=== PATIENT | male | born 1955 ===

== ENCOUNTER → 2020-03-30 14:28 | Outpatient (BNVA) | payer OTHER, SELFPAY | PROVIDERS: Visit Provider Urology | DX: N52.9 Male erectile dysfunction, unspecified (principal) | CPT/HCPCS: 99213 ==

== ENCOUNTER → 2020-07-06 10:07 | Outpatient (BNVA) | payer OTHER, SELFPAY | PROVIDERS: Visit Provider Urology | DX: Z13.89 Encounter for screening for other disorder (principal) ==

== ENCOUNTER 2020-07-12 09:22 | Emergency (ER) | payer MEDICARE, SELFPAY ==
--- NOTE | 2020-07-12 09:39 | ED_ITS ---
HPI - General Adult General Chief complaint: Upper Respiratory Symptoms Stated complaint: multiple complaints Time Seen by Provider: 07/12/20 09:32 Source: patient Mode of arrival: ambulatory Limitations: no limitations History of Present Illness HPI narrative: 65 y/o male with history of COPD, erectile dysfunction, hx colon cancer 30+ years ago, prior hx heroin abuse who presents with SOB and feeling unwell after he received the 2nd dose of the COVID-19 vaccine yesterday. He states at 9pm last night he got chills, SOB, body aches, and headache. He barely slept last night. He denies chest pain, fevers, abdominal pain, N/V/D, no cough. He has been tested several times for COVID-19 and has always been negative. He lives in the assisted living area of the [facility]. MD complaint: SOB Onset (ago): hour(s) (12) Location: head and chest Radiation: non-radiation Severity: moderate Quality: aching Pain Consistency: constant Relieving factors: rest Exacerbating factors: movement Associated symptoms: fever/chills, headaches, loss of appetite, malaise, sh ortness of breath and weakness Treatments prior to arrival: none Related Data Previous Rx's Medication Instructions Recorded tadalafil 20 mg tablet 20 mg PO DAILY PRN 30 Days #15 tab 06/02/20 alprostadil 20 mcg intracavernosal 1.25 mcg INTRA-CAVERNOSAL 3XW PRN 07/06/20 kit #1 ea azithromycin [Zithromax Z-Jose F] See Rx Instructions .ROUTE 07/12/20 .COMPLEX #6 tab prednisone 40 mg PO DAILY #10 tab 07/12/20 Allergies Allergy/AdvReac Type Severity Reaction Status Date / Time haloperidol [Haldol] Allergy Unknown Verified 11/12/18 00:00 No Known Allergies Allergy Unverified 03/09/20 19:31 [No Known Allergies*] Wellbutrin Allergy Unknown Uncoded 11/12/18 00:00 Review of Systems Review of Systems: Constitutional: No Fever, + Chills ENT/Mouth: + sore throat (x1 month), No Rhinorrhea, No Swallowing Difficulty Eyes: No Eye Pain, No Swelling, No Redness Cardiovascular: No Chest Pain, + SOB, + Orthopnea, No Edema Respiratory: No Cough, No Sputum, + Wheezing, + dyspnea Gastrointestinal: No Nausea, No Vomiting, No Diarrhea, No abdominal Pain Genitourinary: No Dysuria, No Urinary Frequency, No Hematuria Musculoskeletal: No joint pain, + Myalgias Skin: No Skin Lesions, No rash Neuro: N+ Weakness, No Numbness, No Dizziness, + Headache Psych: + Anxiety/Panic, No Depression Heme/Lymph: No Bruising, No Lymphadenopathy Endocrine: No Polyuria, No Polydipsia [facility] Past Medical History Attestation statement: The following information was validated with the patient. Medical History BPH (benign prostatic hyperplasia) Colon cancer COPD (chronic obstructive pulmonary disease) Social History Social History Alcohol intake: never Smoking Status: Former smoker Use of substances other than those prescribed or required for medical reasons: No Advance Directives: No Advance Directives Information Provided: No Physical Exam Vital Signs: Vital Signs: Last Vital Signs Temp 98.5 F 07/12/20 12:34 Pulse 115 H 07/12/20 12:34 Resp 26 H 07/12/20 12:34 BP 131/73 07/12/20 12:34 Pulse Ox 95 07/12/20 12:34 Body Mass Index 26.6 Appearance: Alert. Oriented X3. No acute distress. Eyes: Pupils equal, round and reactive to light. ENT: Pharynx with mild generalized erythema. Neck: Normal inspection. Neck supple. CVS: rapid rate, regular rhythm. Pulses normal. Respiratory: Mild respiratory distress with RR mid 20's. Expiratory wheezes th roughout right lung. Left lung sounds are normal Abdomen: Softly distended and nontender. +BS x4 Skin: Skin warm and dry. Normal skin color. Normal skin turgor. No rashes. Extremities: No lower extremity edema. Negative Kaitlyn's sign. Neuro: Oriented X 3. No motor deficit. No sensory deficit. Course Course Course Narrative: 65 y/o male with history of COPD, remote hx colon cancer, ED, prior drug use who presents with flu-like symptoms as well as SOB after receving the COVID vaccine yesterday. He is tachycardic and tachypneic on arrival with SpO2 97%. Symptoms likely related to vaccination however given his respiratory status will get CXR, labs including DDIMER. EKG ordered. Will give IV steroids and nebulizer treatment once COVID is negative. He has right sided wheeze and hx COPD. Dispo pending results and improvement. Reevaluation(s) Reevaluation #1: Aeration improved after nebulizer treatment. HR 120-130 after neb. Patient is asymptomatic. Low grade fever persists after Tylenol. Dose of IV toradol ordered. DDIMER <200. Doubt PE. Procalcitonin low and CXR showing only mild pulmonary vascular congestion, no infiltrate. BNP is 11. Will re-evaluate Reevaluation #2: HR improved to 102. RR 20. He feels much better. He is stable for discharge with treatment for COPD exacerbation with prednisone and Z-jose f. Counseled on vaccine reactions and management. Medical Decision Making Lab Data Result diagrams: 07/12/20 10:37 07/12/20 10:37 Labs: Lab Results 07/12/20 07/12/20 07/12/20 Range/Units 09:46 10:37 10:37 WBC 8.6 (4.8-10.8) X10*3/uL RBC 4.74 (4.60-5.80) X10*6/uL Hgb 14.3 (14.0-18.0) g/dl Hct 43.1 (42-52) % MCV 90.9 (80-98) fL MCH 30.2 (27.0-33.0) pg MCHC 33.2 (31.0-36.0) g/dl RDW 11.8 (11.0-16.0) % Plt Count 184 (160-400) X10*3/uL MPV 9.4 (9.4-12.4) fL Immature Gran % (Auto) 0.4 (0.0-0.4) % Neut % (Auto) 78.5 H (45-73) % Lymph % (Auto) 13.4 L (20-40) % Cloud % (Auto) 7.0 (2-11) % Eos % (Auto) 0.2 (0-4) % Baso % (Auto) 0.5 (0-2) % Lymph # (Auto) 1.2 (1.2-4.9) X10*3/uL Cloud # (Auto) 0.6 (0.1-1.2) X10*3/uL Eos # (Auto) 0.0 (0.0-0.4) X10*3/uL Baso # (Auto) 0.0 (0.0-0.2) X10*3/uL Abs Immat Gran (auto) 0.03 (0.00-0.03) X10*3/uL Absolute Neuts (auto) 6.7 (2.0-8.3) X10*3/uL Absolute Nucleated RBC 0.000 (0.0-0.012) X10*3/uL Nucleated RBC % (auto) 0.0 (0.0-0.2) /100WBC D-Dimer < 200 NG/ML Sodium (135-145) mmol/L Potassium (3.3-5.1) mmol/l Chloride (96-108) mmol/L Carbon Dioxide (22-29) mmol/L Anion Gap (12-20) BUN (9-16) mg/dL Creatinine (0.5-1.4) mg/dL Estim Creat Clear Calc Estimated GFR Random Glucose (60-115) mg/dL Lactic Acid (0.5-2.0) mmol/L Calcium (8.4-10.2) mg/dL Magnesium (1.6-2.6) mg/dL Total Bilirubin (0.0-1.0) mg/dL Direct Bilirubin (0.0-0.5) mg/dL AST (5-37) U/L ALT (0-40) U/L Alkaline Phosphatase (39-117) U/L C-Reactive Protein (< or = 0.50) mg/dL B-Natriuretic Peptide (<100) pg/mL Total Protein (6.5-8.0) g/dL Albumin (3.5-5.0) g/dL Procalcitonin ng/mL Coronavirus (PCR) NEGATIVE (Negative) Influenza Type A (PCR) NEGATIVE (Negative) Influenza Type B (PCR) NEGATIVE (Negative) RSV RNA Qual (PCR) NEGATIVE (Negative) 07/12/20 07/12/20 07/12/20 Range/Units 10:37 10:37 10:37 WBC (4.8-10.8) X10*3/uL RBC (4.60-5.80) X10*6/uL Hgb (14.0-18.0) g/dl Hct (42-52) % MCV (80-98) fL MCH (27.0-33.0) pg MCHC (31.0-36.0) g/dl RDW (11.0-16.0) % Plt Count (160-400) X10*3/uL MPV (9.4-12.4) fL Immature Gran % (Auto) (0.0-0.4) % Neut % (Auto) (45-73) % Lymph % (Auto) (20-40) % Cloud % (Auto) (2-11) % Eos % (Auto) (0-4) % Baso % (Auto) (0-2) % Lymph # (Auto) (1.2-4.9) X10*3/uL Cloud # (Auto) (0.1-1.2) X10*3/uL Eos # (Auto) (0.0-0.4) X10*3/uL Baso # (Auto) (0.0-0.2) X10*3/uL Abs Immat Gran (auto) (0.00-0.03) X10*3/uL Absolute Neuts (auto) (2.0-8.3) X10*3/uL Absolute Nucleated RBC (0.0-0.012) X10*3/uL Nucleated RBC % (auto) (0.0-0.2) /100WBC D-Dimer NG/ML Sodium 139 (135-145) mmol/L Potassium 4.4 (3.3-5.1) mmol/l Chloride 104 (96-108) mmol/L Carbon Dioxide 24 (22-29) mmol/L Anion Gap 15 (12-20) BUN 12 (9-16) mg/dL Creatinine 1.02 (0.5-1.4) mg/dL Estim Creat Clear Calc 61.9 Estimated GFR > 60 Random Glucose 132 H (60-115) mg/dL Lactic Acid 1.3 (0.5-2.0) mmol/L Calcium 9.4 (8.4-10.2) mg/dL Magnesium 2.0 (1.6-2.6) mg/dL Total Bilirubin 1.2 H (0.0-1.0) mg/dL Direct Bilirubin 0.4 (0.0-0.5) mg/dL AST 16 (5-37) U/L ALT 11 (0-40) U/L Alkaline Phosphatase 76 (39-117) U/L C-Reactive Protein 1.01 H (< or = 0.50) mg/dL B-Natriuretic Peptide 11 (<100) pg/mL Total Protein 7.8 (6.5-8.0) g/dL Albumin 5.0 (3.5-5.0) g/dL Procalcitonin ng/mL Coronavirus (PCR) (Negative) Influenza Type A (PCR) (Negative) Influenza Type B (PCR) (Negative) RSV RNA Qual (PCR) (Negative) 07/12/20 Range/Units 10:37 WBC (4.8-10.8) X10*3/uL RBC (4.60-5.80) X10*6/uL Hgb (14.0-18.0) g/dl Hct (42-52) % MCV (80-98) fL MCH (27.0-33.0) pg MCHC (31.0-36.0) g/dl RDW (11.0-16.0) % Plt Count (160-400) X10*3/uL MPV (9.4-12.4) fL Immature Gran % (Auto) (0.0-0.4) % Neut % (Auto) (45-73) % Lymph % (Auto) (20-40) % Cloud % (Auto) (2-11) % Eos % (Auto) (0-4) % Baso % (Auto) (0-2) % Lymph # (Auto) (1.2-4.9) X10*3/uL Cloud # (Auto) (0.1-1.2) X10*3/uL Eos # (Auto) (0.0-0.4) X10*3/uL Baso # (Auto) (0.0-0.2) X10*3/uL Abs Immat Gran (auto) (0.00-0.03) X10*3/uL Absolute Neuts (auto) (2.0-8.3) X10*3/uL Absolute Nucleated RBC (0.0-0.012) X10*3/uL Nucleated RBC % (auto) (0.0-0.2) /100WBC D-Dimer NG/ML Sodium (135-145) mmol/L Potassium (3.3-5.1) mmol/l Chloride (96-108) mmol/L Carbon Dioxide (22-29) mmol/L Anion Gap (12-20) BUN (9-16) mg/dL Creatinine (0.5-1.4) mg/dL Estim Creat Clear Calc Estimated GFR Random Glucose (60-115) mg/dL Lactic Acid (0.5-2.0) mmol/L Calcium (8.4-10.2) mg/dL Magnesium (1.6-2.6) mg/dL Total Bilirubin (0.0-1.0) mg/dL Direct Bilirubin (0.0-0.5) mg/dL AST (5-37) U/L ALT (0-40) U/L Alkaline Phosphatase (39-117) U/L C-Reactive Protein (< or = 0.50) mg/dL B-Natriuretic Peptide (<100) pg/mL Total Protein (6.5-8.0) g/dL Albumin (3.5-5.0) g/dL Procalcitonin 0.03 ng/mL Coronavirus (PCR) (Negative) Influenza Type A (PCR) (Negative) Influenza Type B (PCR) (Negative) RSV RNA Qual (PCR) (Negative) ECG Data Attestation: I personally reviewed and interpreted this ECG as follows: Interpretation: sinus tachycardia, HR 114 BPM, left anterior fasciuclar block, normal [place] interval, Critical Care Time Critical Care Time Critical Care Time: No Discharge Plan Discharge Clinical Impression: COPD (chronic obstructive pulmonary disease) Qualifiers: COPD type: chronic bronchitis Chronic bronchitis type: unspecified Qualified Code(s): J42 - Unspecified chronic bronchitis Patient Disposition: Home, Self-Care Instructions: COPD (Chronic Obstructive Pulmonary Disease) (ED) Additional Instructions: Your lab workup today was unremarkable. You are being treated for COPD exacerbation with steroids and an antibiotic. Your chills, headache and body aches are due to the COVID vaccine - this is normal. Take Tylenol for your symptoms. Follow up with your doctor this week. Come back to the ER if your shortness of breath worsens or if you develop d ifficulty breathing. Prescriptions: New azithromycin [Zithromax Z-Jose F] 250 mg tablet See Rx Instructions .ROUTE .COMPLEX Qty: 6 RF: 0 prednisone 20 mg tablet 40 mg PO DAILY Qty: 10 RF: 0 No Action tadalafil [Cialis] 20 mg tablet 20 mg PO DAILY PRN (Reason: sexual activity) 30 Days Qty: 15 RF: 3 Edex 20 mcg kit 1.25 mcg intra-cavernosal 3XW PRN (Reason: erectile dysfunction) Qty: 1 RF: 6
--- NOTE | 2020-07-12 09:43 | XR_ITS ---
EXAMINATION: XR CHEST CLINICAL INFORMATION: SOB. COMPARISON: Chest 12/30/2017 TECHNIQUE: Frontal view of the chest was obtained. FINDINGS: The lungs are well-expanded and clear of acute pneumonic process. Heart size is normal. Small Andrew B lines are seen along right CP angle suspicious for mild congestion. No gross bony abnormality seen. XR/XR chest 1V IMPRESSION: Suspect mild pulmonary vascular congestion. No acute pneumonic process seen.
[2020-07-12 09:53] VITALS: BP 145/98; PULSE 116; RESP 24; TEMP 37.6; O2SAT 96; BMI 26.6
--- NOTE | 2020-07-12 09:59 | ECG_ITS ---
Test Reason : SOB Blood Pressure : / mmHG Vent. Rate : 114 BPM Atrial Rate : 114 BPM P-R Int : 142 ms QRS Dur : 074 ms QT Int : 326 ms P-R-T Axes : 073 -45 065 degrees QTc Int : 449 ms Sinus tachycardia Left anterior fascicular block Abnormal ECG When compared with ECG of 30-DEC-2017 12:58, Left anterior fascicular block is now Present Referred By: Shannan Schuster Electronically Signed By:AUSTIN WILLIS
[2020-07-12] MEDS: Albuterol Sulfate (0.083%) 2.5 MG/3 ML VIAL.NEB 5 MG INHALE (10:18)
[2020-07-12 10:23] VITALS: PULSE 105; O2SAT 96
[2020-07-12 10:39] LABS: Influenza A PCR NEGATIVE (Negative); Influenza B PCR NEGATIVE (Negative); Resp Syncy Virus RNA Qual PCR NEGATIVE (Negative); SARS COV2 PCR INHOUSE NEGATIVE (Negative)
[2020-07-12] MEDS: Acetaminophen 325 MG TABLET 975 MG PO (10:40)
[2020-07-12] MEDS: 0.9 % Sodium Chloride 1,000 ML 999 ML IVCONT (10:41)
[2020-07-12] MEDS: methylPREDNISolone Sod Succ/PF 125 MG/2 ML VIAL 80 MG IVPUSH (10:41)
[2020-07-12 10:44] LABS: MANUAL DIFF FLAG NO
[2020-07-12 10:56] LABS: Basophils Percent Auto 0.5 % (0-2); Eosinophils Percent Auto 0.2 % (0-4); Hematocrit 43.1 % (42-52); Hemoglobin 14.3 g/dl (14.0-18.0); Imm Gran Abs Auto 0.03 X10*3/uL (0.00-0.03); Imm Gran Pct Auto 0.4 % (0.0-0.4); Lymphocytes Absolute Auto 1.2 X10*3/uL (1.2-4.9); Lymphocytes Percent Auto 13.4 % (20-40); Mean Corpuscular HGB Conc 33.2 g/dl (31.0-36.0); Mean Corpuscular Hemoglobin 30.2 pg (27.0-33.0); Mean Corpuscular Volume 90.9 fL (80-98); Mean Platelet Volume 9.4 fL (9.4-12.4); Monocytes Absolute Auto 0.6 X10*3/uL (0.1-1.2); Neutrophils Absolute Auto 6.7 X10*3/uL (2.0-8.3); Neutrophils Percent Auto 78.5 % (45-73); Platelet Count 184 X10*3/uL (160-400); Red Blood Count 4.74 X10*6/uL (4.60-5.80); Red Cell Distribution Width 11.8 % (11.0-16.0); White Blood Count 8.6 X10*3/uL (4.8-10.8)
[2020-07-12 10:58] LABS: D Dimer < 200 NG/ML
[2020-07-12 11:05] VITALS: BP 144/94; PULSE 129; PULSE 130; RESP 25; TEMP 37.7; O2SAT 96; O2SAT 97
[2020-07-12 11:10] LABS: Lactic Acid 1.3 mmol/L (0.5-2.0)
[2020-07-12 11:17] LABS: Alanine Aminotransferase 11 U/L (0-40); Alkaline Phosphatase 76 U/L (39-117); Anion Gap 15 (12-20); Aspartate Amino Transferase 16 U/L (5-37); Bilirubin Direct 0.4 mg/dL (0.0-0.5); Bilirubin Total 1.2 mg/dL (0.0-1.0); Blood Urea Nitrogen 12 mg/dL (9-16); C Reactive Protein 1.01 mg/dL (< or = 0.50); Calcium 9.4 mg/dL (8.4-10.2); Carbon Dioxide 24 mmol/L (22-29); Chloride 104 mmol/L (96-108); Creatinine Clr Calc Pharmacy 61.9; Estimated Glomerular Filt Rate > 60; Glucose Random 132 mg/dL (60-115); Potassium 4.4 mmol/l (3.3-5.1); Sodium 139 mmol/L (135-145); Total Protein 7.8 g/dL (6.5-8.0)
[2020-07-12 11:22] LABS: B Type Natriuretic Peptide 11 pg/mL (<100)
[2020-07-12 11:39] LABS: Procalcitonin 0.03 ng/mL
[2020-07-12 12:34] VITALS: BP 131/73; PULSE 115; RESP 26; TEMP 36.9; O2SAT 95
[2020-07-12] MEDS: Ketorolac Tromethamine 30 MG/ML VIAL IVPUSH (12:57)
== END 2020-07-12 14:24 | disposition home or self-care (01) ==
PROVIDERS: Physician Assistant; Emergency Provider Emergency Medicine
DX: J42 Unspecified chronic bronchitis (principal); R06.02 Shortness of breath; Z79.899 Other long term (current) drug therapy; Z87.891 Personal history of nicotine dependence; Z20.822 Contact with and (suspected) exposure to COVID-19
CPT/HCPCS: 0241U; 36415; 71045; 80048; 80076; 83605; 83735; 83880; 84145; 85025; 85379; 86140; 87040; 93005; 94640; 96374; 96375; 99284; 99285; J1885; J2930

== ENCOUNTER 2023-08-10 07:33 | Inpatient (IN) | payer MEDICARE, SELFPAY ==
[2023-08-10] VITALS (8 sets, daily range): BP systolic 104–137; BP diastolic 53–88; PULSE 67–95; RESP 13–25; TEMP 36.4–36.9; O2SAT 89–98; BMI 23.1
--- NOTE | 2023-08-10 | ECG_ITS ---
Test Reason : OD/BASELINE Blood Pressure : / mmHG Vent. Rate : 081 BPM Atrial Rate : 081 BPM P-R Int : 134 ms QRS Dur : 074 ms QT Int : 390 ms P-R-T Axes : 052 -20 053 degrees QTc Int : 453 ms Normal sinus rhythm Normal ECG When compared with ECG of 12-JUL-2020 10:22, No significant change was found Referred By: Bev Xiao Electronically Signed By:KALPESH CANO MD
--- NOTE | ~2023-08-10 | XR_ITS ---
EXAMINATION: XR CHEST CLINICAL INFORMATION: Shortness of breath COMPARISON: X-ray 07/12/2020 TECHNIQUE: 3 views of the chest were obtained. FINDINGS: Stable cardiac and mediastinal silhouette. Hazy patchy opacities in the right lung base. Stable mild central vascular prominence. No overt pulmonary edema. No effusion or pneumothorax. Thoracic spine degeneration. XR/XR chest 2V IMPRESSION: Right basilar hazy opacities could reflect infectious/inflammatory process.
--- NOTE | 2023-08-10 07:42 | ED.OVERDOSE ---
HPI - Overdose General Chief Complaint: Overdose Stated Complaint: OVERDOSE 4MG OF NARCAN Source: EMS Mode of arrival: EMS History of Present Illness HPI Narrative: This is a 68 years old male with history of opioid abuse presented to the emergency room by ambulance after overdose of opioids. Per EMS he was unresponsive requiring BVM ventilation, received 4 mg of Narcan in the field he arrives now awake alert actively vomiting. He has history of COPD and history of substance abuse MD complaint: accidental overdose Onset (ago): hour(s) (1) How Overdose Was Discovered: called family/friend Context: Accidental Overdose: wanted to get high Associated symptoms: lethargy Treatments Prior to Arrival: narcan Related Data Home Medications Medication Instructions Recorded Confirmed docusate sodium 100 mg capsule 100 mg PO BID PRN Constipation 08/10/23 08/10/23 ferrous gluconate 324 mg (38 mg 324 mg PO DAILY 08/10/23 08/10/23 iron) tablet fluticasone fur. 200 mcg-umeclid 1 inh inhalation DAILY 08/10/23 08/10/23 62.5 mcg-vilant 25 mcg inhalat.powder (Trelegy Ellipta) levalbuterol tartrate 45 2 inh inhalation QID PRN Shortness 08/10/23 08/10/23 mcg/actuation aerosol inhaler Of Breath Or Wheezing prazosin 2 mg capsule 2 mg PO BEDTIME 08/10/23 08/10/23 quetiapine 100 mg tablet 100 mg PO BEDTIME 08/10/23 08/10/23 Previous Rx's Medication Instructions Recorded amoxicillin 875 mg-potassium 1 tab PO BID #10 tabs 08/11/23 clavulanate 125 mg tablet prednisone 20 mg tablet 40 mg (2 x 20 mg) PO DAILY #10 tabs 08/11/23 Allergies Allergy/AdvReac Type Severity Reaction Status Date / Time haloperidol [Haldol] Allergy Unknown Anaphylaxis Verified 08/10/23 20:08 Wellbutrin Allergy Unknown Hives Uncoded 08/10/23 20:08 Review of Systems Constitutional: Constitutional: Reports no additional constitutional complaints ENT: Reports system reviewed and no additional complaints, except as documented Respiratory: Respiratory: Reports no additional respiratory complaints [facility] Past Medical History [facility] Narrative: Opioid abuse/COPD/colon cancer Medical History Colon cancer COPD (chronic obstructive pulmonary disease) BPH (benign prostatic hyperplasia) Social History Social History Household Members: None Housing: Other Housing Other:: Renting a room Do you presently have visiting nurse or other home services: No Alcohol intake: never Patient Tobacco Use Status: Former Tobacco user Use of substances other than those prescribed or required for medical reasons: Yes Substance Use Type: Crack/Cocaine Substance Use Frequency: Socially Last Used Substance: Hours (ago) Currently Displaying Signs/Symptoms of Drug Intoxication Withdrawal: No Any prior treatment program specific to substance use: No Have you been hit, kicked, punched, or otherwise hurt by someone within the past year? If so, by whom?: No Do you feel safe in your current relationship?: No Current Relationship Is there a partner from a previous relationship who is making you feel unsafe now?: No Are you made to feel afraid or neglected: No Advance Directives: No Advance Directives Information Provided: No Do you have thoughts of harming others: None Do you have a plan to hurt others: No Plan Nutrition Risks: No Nutritional Risk Poor oral hygiene: No Physical Exam Vital Signs: Vital Signs: Last Vital Signs Temp 97.7 F 08/11/23 08:00 Pulse 83 08/11/23 08:00 Resp 18 08/11/23 08:00 BP 129/68 08/11/23 08:00 Pulse Ox 92 08/11/23 08:00 O2 Del Method Room Air 08/11/23 08:00 O2 Flow Rate 1 08/10/23 23:20 BMI result Body Mass Index 23.1 Const: General: cooperative Nutritional Appearance: well nourished Orientation/consciousness: oriented to person HEENT: Head: Yes normal to inspection Ears: external ears normal General nose exam: Normal external nose present Face and sinus: Yes normal facial exam Mouth: Normal oral and palatal mucosa present Throat: Yes posterior oropharynx normal Neck: Neck: Yes normal visual inspection Lymphatic: no lymphadenopathy noted Chest: Chest palpation & inspection: normal inspection of the chest Resp: Effort & Inspection: normal respiratory effort Auscultation: clear to auscultation bilaterally Cardio: Jugular venous distension: no JVD Rate: regular rate Rhythm: regular rhythm GI: Inspection: Yes normal to inspection Palpation (GI): Soft to palpation Percussion: Yes normal to percussion Skin: General skin exam: no rashes or lesions noted Lesions: no lesions Rashes: no rashes Trauma: no lacerations or abrasions Wounds: no wounds Neuro: General: oriented to person Cranial nerves: Yes CN's II-XII intact bilaterally Medications Administered Generic Name Dose Route Start Last Admin Trade Name Freq PRN Reason Stop Dose Admin Albuterol/Ipratropium 3 ml 08/10/23 16:00 08/11/23 07:51 Albuterol/Iprat 2.5/0.5mg 3 Ml Ampul.Neb INHALE 3 ml RQ4H WHILE AWAKE UNIQUE Administration Enoxaparin Sodium 40 mg 08/10/23 13:30 08/10/23 13:50 Enoxaparin Sodium 40 Mg/0.4 Ml Syringe SUBCUT 40 mg Q24H UNIQUE Administration Fluticasone/Umeclidinium/Vilanterol 1 puff 08/11/23 09:00 08/11/23 07:53 Fluticasone/Umeclidinium/Vilanterol 200/62.5/25 Blst.W.Dev INHALE Not Given DAILY UNIQUE Piperacillin Sod/Tazobactam 50 mls @ 100 mls/hr 08/10/23 17:45 08/11/23 06:28 Sod 3.375 gm/ Sodium Chloride IV Infused Q6H UNIQUE Infusion Methylprednisolone Sodium Succinate 40 mg 08/10/23 15:45 08/11/23 04:04 Methylprednisolone Sod Succ 40 Mg/Ml Vial IVPUSH 40 mg Q12H UNIQUE Administration Prazosin HCl 2 mg 08/10/23 21:00 08/10/23 20:18 Prazosin Hcl 1 Mg Capsule PO 2 mg BEDTIME UNIQUE Administration Protocol Quetiapine Fumarate 100 mg 08/10/23 21:00 08/10/23 20:18 Quetiapine Fumarate 100 Mg Tablet PO 100 mg BEDTIME UNIQUE Administration Sodium Chloride 3 ml 08/10/23 16:00 08/11/23 09:20 0.9 % Sodium Chloride Flush 3 Ml Syringe IVFLUSH Not Given QSHIFT UNIQUE Discontinued Medications Generic Name Dose Route Start Last Admin Trade Name Freq PRN Reason Stop Dose Admin Sodium Chloride 1,000 mls @ 999 mls/hr 08/10/23 07:45 08/10/23 09:42 Ns IVCONT 08/10/23 08:45 Infused .Q1H1M UNIQUE Infusion Piperacillin Sod/Tazobactam 100 mls @ 200 mls/hr 08/10/23 11:31 08/10/23 12:55 Sod 4.5 gm/ Sodium Chloride IV 08/10/23 12:00 Infused ONCE ONE Infusion Sodium Chloride 1,000 mls @ 999 mls/hr 08/10/23 13:15 08/10/23 14:58 Ns IVCONT 08/10/23 14:15 Infused .Q1H1M UNIQUE Infusion Ondansetron HCl 4 mg 08/10/23 07:41 08/10/23 08:30 Ondansetron Hcl 4 Mg/2 Ml Vial IVPUSH 08/10/23 07:42 4 mg ONCE ONE Administration Medical Decision Making Medical Decision Making [facility] Narrative: Patient presented with opioid overdose will check labs administer fluid IV antiemetic and reassessed Differential Diagnosis Differential Diagnoses: The differential diagnosis associated with the presentation includes Overdose of opioids/overdose of benzodiazepine alcohol intoxication Admission/Observation Consideration of admission/observation: Escalation of care including admission/observation considered Consult Healthcare Provider Management of the patient was discussed with: Hospitalist Lab Data [facility] Lab Attestation statement: I reviewed the patient's lab results. 08/11/23 04:58 08/11/23 04:58 Labs: Lab Results 08/10/23 08/10/23 Range/Units 08:11 12:05 WBC 11.8 H (4.8-10.8) X10*3/uL RBC 4.43 L (4.60-5.80) X10*6/uL Hgb 13.5 L (14.0-18.0) g/dl Hct 40.2 L (42.0-52.0) % MCV 90.7 (80.0-98.0) fL MCH 30.5 (27.0-33.0) pg MCHC 33.6 (31.0-36.0) g/dl RDW 12.6 (11.0-16.0) % Plt Count 198 (160-400) X10*3/uL MPV 9.4 (9.4-12.4) fL Immature Gran % (Auto) 2.0 H (0.0-0.4) % Neut % (Auto) 81.8 H (45-73) % Lymph % (Auto) 10.6 L (20-40) % [place] % (Auto) 5.1 (2-11) % Eos % (Auto) 0.2 (0-4) % Baso % (Auto) 0.3 (0-2) % Lymph # (Auto) 1.3 (1.2-4.9) X10*3/uL [place] # (Auto) 0.6 (0.1-1.2) X10*3/uL Eos # (Auto) 0.0 (0.0-0.4) X10*3/uL Baso # (Auto) 0.0 (0.0-0.2) X10*3/uL Abs Immat Gran (auto) 0.24 H (0.00-0.03) X10*3/uL Absolute Neuts (auto) 9.7 H (2.0-8.3) x10*3/uL Absolute Nucleated RBC 0.000 (0.0-0.012) X10*3/uL Nucleated RBC % (auto) 0.0 (0.0-0.2) /100WBC Sodium 139 (135-145) mmol/L Potassium 3.9 (3.3-5.1) mmol/L Chloride 105 (96-108) mmol/L Carbon Dioxide 23 (22-29) mmol/L Anion Gap 15 (12-20) BUN 14 (9-16) mg/dL Creatinine 1.09 (0.5-1.4) mg/dL Estim Creat Clear Calc 66.0 Estimated GFR > 60 Random Glucose 260 H (60-115) mg/dL Calcium 8.9 (8.4-10.2) mg/dL Total Bilirubin 0.9 (0.0-1.0) mg/dL AST 71 H (5-37) U/L ALT 28 (0-40) U/L Alkaline Phosphatase 81 (39-117) U/L Troponin I High Sens 9.0 (<3.5-35.0) ng/L Total Protein 7.5 (6.5-8.0) g/dL Albumin 4.6 (3.5-5.0) g/dL Influenza Type A (PCR) NEGATIVE (Negative) Influenza Type B (PCR) NEGATIVE (Negative) RSV RNA Qual (PCR) NEGATIVE (Negative) SARS-CoV-2 RNA (RT-PCR) NEGATIVE (Negative) Independent Interpretation I performed an independent interpretation of an: Plain X-Ray Radiology Impression Discussion of test interpretation with radiology: I have reviewed the radiologist's reading. Radiologist Impression: TECHNIQUE: 3 views of the chest were obtained. FINDINGS: Stable cardiac and mediastinal silhouette. Hazy patchy opacities in the right lung base. Stable mild central vascular prominence. No overt pulmonary edema. No effusion or pneumothorax. Thoracic spine degeneration. XR/XR chest 2V IMPRESSION: Right basilar hazy opacities could reflect infectious/inflammatory process. External Record Review External record reviewed: Inpatient record Discharge Plan Discharge Clinical Impression: Opioid overdose, Aspiration pneumonia Patient Disposition: Admitted As Inpatient Interventions: Admission Worksheet (ED) Last Done: 08/10/23 18:06 Discharge Date/Time: 08/10/23 19:53
[2023-08-10 08:14] LABS: MANUAL DIFF FLAG NO
[2023-08-10 08:17] LABS: Basophils Percent Auto 0.3 % (0-2); Eosinophils Percent Auto 0.2 % (0-4); Hematocrit 40.2 % (42.0-52.0); Hemoglobin 13.5 g/dl (14.0-18.0); Imm Gran Abs Auto 0.24 X10*3/uL (0.00-0.03); Lymphocytes Absolute Auto 1.3 X10*3/uL (1.2-4.9); Lymphocytes Percent Auto 10.6 % (20-40); Mean Corpuscular HGB Conc 33.6 g/dl (31.0-36.0); Mean Corpuscular Hemoglobin 30.5 pg (27.0-33.0); Mean Corpuscular Volume 90.7 fL (80.0-98.0); Mean Platelet Volume 9.4 fL (9.4-12.4); Monocytes Absolute Auto 0.6 X10*3/uL (0.1-1.2); Monocytes Percent Auto 5.1 % (2-11); Neutrophils Absolute Auto 9.7 x10*3/uL (2.0-8.3); Neutrophils Percent Auto 81.8 % (45-73); Platelet Count 198 X10*3/uL (160-400); Red Blood Count 4.43 X10*6/uL (4.60-5.80); Red Cell Distribution Width 12.6 % (11.0-16.0); White Blood Count 11.8 X10*3/uL (4.8-10.8)
[2023-08-10] MEDS: ondansetron HCL 4 MG/2 ML VIAL IVPUSH (08:30)
[2023-08-10] MEDS: 0.9 % Sodium Chloride 1,000 ML 999 ML IVCONT ×2 (08:30→13:48)
--- NOTE | 2023-08-10 08:40 | PC.NURSE ---
pt comes in by ambulance for overdose that appears accidental. pt is lethargic/drowsy and responds with slurred 2-3 word answers with eyes closed. pt initially sating 90-91% on room air. placed on 2L O2 via NC, up to 98%, taken off of O2 and sating 93% on room air. pt vomiting small amount in rashmi-bag. smear of blood noted. labs drawn and sent. 20G IV placed to L forearm. rr even/unlabored. call arizmendi within reach. plan of care ongoing.
[2023-08-10 08:45] LABS: Alanine Aminotransferase 28 U/L (0-40); Albumin Level 4.6 g/dL (3.5-5.0); Alkaline Phosphatase 81 U/L (39-117); Anion Gap 15 (12-20); Aspartate Amino Transferase 71 U/L (5-37); Bilirubin Total 0.9 mg/dL (0.0-1.0); Blood Urea Nitrogen 14 mg/dL (9-16); Calcium 8.9 mg/dL (8.4-10.2); Carbon Dioxide 23 mmol/L (22-29); Chloride 105 mmol/L (96-108); Estimated Glomerular Filt Rate > 60; Glucose Random 260 mg/dL (60-115); Potassium 3.9 mmol/L (3.3-5.1); Sodium 139 mmol/L (135-145); Total Protein 7.5 g/dL (6.5-8.0)
--- NOTE | 2023-08-10 11:34 | HO.SUDE ---
Briefly met with pt in ED16 after pt BIBA from [facility] for overdose. Pts friend thought he was having a heart attack, unresponsive for EMS, 4 mg Narcan administered, temportarily bagged. Awake and responsive on arrival. Pt sitting in bed, asleep, wakes to touch. As soon as pt attempts to talk, begins heaving/vomiting. Pt unable to fully engage in discussion. Pt reports using cocaine, INH, this morning and once 5 or 6 days ago. Prior to that, pt reports last use 8 years ago. Discussed possibility of fentanyl in cocaine supply as well as harm reduction, pt verbalizes understanding. Pt denies questions or concerns at this time. Will continue to allow pt to rest. Discussed with RN.
[2023-08-10] MEDS: Piperacillin Sodium/Tazobactam 4.5 GM in 0.9 % Sodium Chloride 100 ML IV (12:16)
--- NOTE | 2023-08-10 12:32 | P.HPHOSP_ITS ---
History of Present Illness Date of Service: 08/10/23 Attending physician on admission: Arcadio Pendleton Chief Complaint: Opioid overdose Pt is a 68-year-old male with a PMH significant for?COPD, erectile dysfunction, hx of colon cancer 30+ years ago, and hx of heroin use disorder who presents to the ED after overdose on opioids. According to EMS patient was found unresponsive and required BVM ventilation. Received 4 mg of Narcan in the field, and initially arrived at the ED alert but actively vomiting. Patient reports he has been clean for 7 years, though recently has been having some unspecified social stressors in his life and decided to use again today. Patient denies any history of IVDU, says he normally smokes heroin. Patient uncertain of events surrounding his overdose, thought he was at his hotel but was found at a different house. Patient denies being in any pain. Chronic cough and shortness of breath around baseline. Denies chest pain/pressure, palpitations. No fever, chills, abdominal pain. Denies headache, acute vision changes. Of note, patient reports being admitted to [facility] a couple of weeks ago for pneumonia. In the ED pt was tachycardic up to 115, tachypneic up to 26, satting as low as 89% on RA. Labs were significant for WBCs 11.8, H&H 13.540.2, AST 71. No electrolyte abnormalities. Troponin 9.0. Tested negative for influenza type a B, COVID. CXR showed right basilar hazy opacities could reflect infectious/inflammatory process. Pt was treated with IVF, ondansetron, and Zosyn. Pt will be admitted to the hospital under observation for treatment and further evaluation of acute hypoxic respiratory failure in the setting of likely aspiration pneumonitis secondary to opioid overdose. Review of Systems 2 Review of Systems: Opioid overdose Nausea, vomiting Chronic SOB and cough, around baseline Denies fever, chills, abdominal pain No chest pain/pressure, palpitations [facility] Medical History Colon cancer COPD (chronic obstructive pulmonary disease) BPH (benign prostatic hyperplasia) Social History Alcohol intake: never Meds Allergies Allergy/AdvReac Type Severity Reaction Status Date / Time haloperidol [Haldol] Allergy Unknown Verified 05/23/19 00:00 No Known Allergies Allergy Unverified 03/09/20 19:31 [No Known Allergies*] Wellbutrin Allergy Unknown Uncoded 11/12/18 00:00 Physical Exam 2 Vital Signs and Narrative: Vital Signs: Last Vital Signs Temp 98.1 F 08/10/23 12:21 Pulse 71 08/10/23 12:21 Resp 15 08/10/23 12:21 BP 113/74 08/10/23 12:21 Pulse Ox 96 08/10/23 12:21 O2 Del Method Room Air 08/10/23 12:21 O2 Flow Rate 1 08/10/23 10:31 BMI result Body Mass Index 23.1 Constitutional: Alert, in no acute distress. Mental Status: Oriented to person, place and time. Eyes: Pupils are equal, round, and reactive to light. Ear, Nose, and Throat: Oropharynx clear, mucous membranes moist. Ears and nose without deformities. Trachea midline. Respiratory: Clear to auscultation bilaterally though diminished bilaterally. No wheezing, rales, or rhonchi. Cardiovascular: S1, S2 regular. No murmurs, rubs, or gallops. Gastrointestinal: Abdomen soft, non-tender, non-distended. Normal bowel sounds. Neurologic: Cranial nerves II-XII are grossly intact bilaterally. No focal neurological deficits. Moves all extremities spontaneously. Skin: Warm, dry. Musculoskeletal: No cyanosis or clubbing. Extremities: No edema. Psychiatric: Normal mood and affect. Results Labs 08/10/23 08:11 08/10/23 08:11 Labs: Laboratory Results - last 24 hr 08/10/23 08:11 MCV 90.7 MCH 30.5 MCHC 33.6 RDW 12.6 Plt Count 198 MPV 9.4 Immature Gran % (Auto) 2.0 H Neut % (Auto) 81.8 H Lymph % (Auto) 10.[address] [place] % (Auto) 5.1 Eos % (Auto) 0.2 Baso % (Auto) 0.3 Lymph # (Auto) 1.3 [place] # (Auto) 0.6 Eos # (Auto) 0.0 Baso # (Auto) 0.0 Abs Immat Gran (auto) 0.24 H Absolute Neuts (auto) 9.7 H Absolute Nucleated RBC 0.000 Nucleated RBC % (auto) 0.0 Anion Gap 15 Estim Creat Clear Calc 66.0 Estimated GFR > 60 Random Glucose 260 H Calcium 8.9 Total Bilirubin 0.9 AST 71 H ALT 28 Alkaline Phosphatase 81 Troponin I High Sens 9.0 Total Protein 7.5 Albumin 4.6 Imaging Radiologist's Impressions: Impressions Chest X-Ray 08/10/23 09:50 IMPRESSION: Right basilar hazy opacities could reflect infectious/inflammatory process. Assessment and Plan (1) Opioid overdose: Status: Acute Plan Pt is a 68-year-old male with a PMH significant for?COPD, erectile dysfunction, hx of colon cancer 30+ years ago, and hx of heroin use disorder who presents to the ED after overdose on opioids. Pt will be admitted to the hospital under observation for treatment and further evaluation of acute hypoxic respiratory failure in the setting of likely aspiration pneumonitis secondary to opioid overdose. Acute hypoxic respiratory failure in setting of likely aspiration pneumonitis secondary to opioid overdose Patient found unresponsive after overdose on opioids, received 4 mg Narcan in the field, actively vomiting s/p Narcan upon arrival to ED Satting as low as 89% on RA in ED CXR with right basilar hazy opacities suggestive of infectious/inflammatory process Pt does not meet sepsis criteria: initial tachycardia and tachypnea secondary to Narcan administration, not sepsis Pt given IVF and started on broad spectrum abx in the ED Will treat with Zosyn, started 08/10/2023 Titrate supplemental O2 >90, wean as tolerated Addiction medicine consult COPD Not in acute exacerbation Continue home inhalers Full Code Attending:?Dr. Pendleton DVT Prophylaxis: Lovenox Pt will require a hospitalization of at least two nights for treatment of? with . Quality Stroke Does the patient have a stroke diagnosis?: No VTE Prior VTE?: No VTE Risk Level:: Medical - moderate - high VTE Device Contraindication: Treatment Not Indicated VTE Drug Contraindication: N/A - Med Ordered
[2023-08-10 12:52] LABS: Influenza A PCR NEGATIVE (Negative); Influenza B PCR NEGATIVE (Negative); Resp Syncy Virus RNA Qual PCR NEGATIVE (Negative); SARS COV2 PCR INHOUSE NEGATIVE (Negative)
[2023-08-10] MEDS: Enoxaparin Sodium 40 MG/0.4 ML SYRINGE SUBCUT (13:50)
--- NOTE | 2023-08-10 14:01 | MHC.CM.PN ---
Met with patient in ER 16. He states that he lives alone. He is independent with all functional mobility. The patient is being followed by the Recovery team. He states that he does not want this to happen to him again. Emotional support and encouragement were provided.
--- NOTE | 2023-08-10 15:00 | PHA.MEDREC ---
Pharmacy Consult ? Medication Reconciliation Pharmacy has completed the [facility]
--- NOTE | 2023-08-10 15:19 | PC.NURSE ---
pt placed back on 1L O2 due to hypoxia. desated to 88-89% on room air. now sating 97% on 1L. pt also appears to be having some difficulty breathing. pt in upright position. although sating appropriately with O2, pt using abdominal muscles. ИРИНА Pablo notified, aware, and met with pt. placing orders now.
[2023-08-10 17:03] LABS: Amphetamine Screen Urine Not Detected (Not Detect); Barbiturates, Urine Not Detected (Not Detect); Benzodiazepines Screen Urine Not Detected (Not Detect); Cannabinoid Screen Urine Not Detected (Not Detect); Cocaine Screen Urine POSITIVE (Not Detect); Fentanyl, urine POSITIVE (Not Detect); Opiate Screen Urine POSITIVE (Not Detect); Phencyclidine Screen Urine Not Detected (Not Detect)
[2023-08-10] MEDS: methylPREDNISolone Sod Succ 40 MG/ML VIAL IVPUSH (17:34)
[2023-08-10] MEDS: Piperacillin Sodium/Tazobactam 3.375 GM in 0.9 % Sodium Chloride 50 ML IV (17:39)
--- NOTE | 2023-08-10 17:42 | PC.NURSE ---
pt medicated per aug. pt appeared to be having difficulty/work of breathing. placed in high fowlers. desated to 88/89% on 1L. has productive cough. given rashmi bag for sputum. pt now sating 95% on 1L O2. report complete. awaiting transport to inpatient room.
[2023-08-10 18:22] LABS: Glucose, Whole Blood 74 mg/dL (60-115)
[2023-08-10] MEDS: Albuterol/Iprat 2.5/0.5MG 3 ML AMPUL.NEB INHALE (20:17)
[2023-08-10] MEDS: QUEtiapine Fumarate 100 MG TABLET PO (20:18)
[2023-08-10] MEDS: Prazosin HCL 1 MG CAPSULE 2 MG PO (20:18)
[2023-08-11] MEDS: Piperacillin Sodium/Tazobactam 3.375 GM in 0.9 % Sodium Chloride 50 ML IV ×2 (00:44→05:50)
[2023-08-11] MEDS: 0.9 % Sodium Chloride Flush 3 ML SYRINGE IVFLUSH (00:45)
[2023-08-11] MEDS: methylPREDNISolone Sod Succ 40 MG/ML VIAL IVPUSH (04:04)
[2023-08-11 05:51] LABS: Hemoglobin 11.1 g/dl (14.0-18.0); Mean Corpuscular HGB Conc 32.6 g/dl (31.0-36.0); Mean Corpuscular Hemoglobin 30.5 pg (27.0-33.0); Mean Corpuscular Volume 93.4 fL (80.0-98.0); Mean Platelet Volume 9.6 fL (9.4-12.4); Platelet Count 155 X10*3/uL (160-400); Red Blood Count 3.64 X10*6/uL (4.60-5.80); Red Cell Distribution Width 12.6 % (11.0-16.0); White Blood Count 8.6 X10*3/uL (4.8-10.8)
[2023-08-11 06:06] LABS: Anion Gap 12 (12-20); Blood Urea Nitrogen 15 mg/dL (9-16); Calcium 8.7 mg/dL (8.4-10.2); Carbon Dioxide 24 mmol/L (22-29); Chloride 109 mmol/L (96-108); Creatinine Clr Calc Pharmacy 72.7; Estimated Glomerular Filt Rate > 60; Glucose Random 111 mg/dL (60-115); Potassium 4.2 mmol/L (3.3-5.1); Sodium 141 mmol/L (135-145)
[2023-08-11 07:51] VITALS: PULSE 73; RESP 18; O2SAT 91
[2023-08-11] MEDS: Albuterol/Iprat 2.5/0.5MG 3 ML AMPUL.NEB INHALE (07:51)
[2023-08-11 08:00] VITALS: BP 129/68; PULSE 83; RESP 18; TEMP 36.5; O2SAT 92
--- NOTE | 2023-08-11 09:20 | P.DS_ITS ---
DS: Providers Provider Date of Service: 08/11/23 Date of admission: 08/10/23 15:39 Primary care physician: Unknown Physician Consults: 08/10/23 13:21 Addiction Medicine Routine Consulting Provider: Addiction Covering Reason for consultation: Opioid use disorder, OD'd in community DS: Diagnosis Discharge Diagnosis (1) Opioid overdose: Status: Acute DS: Summary Hospital Course Hospital Course: from initial hpi: 68-year-old male with a PMH significant for COPD, erectile dysfunction, hx of colon cancer 30+ years ago, and hx of heroin use disorder who presents to the ED after overdose on opioids. According to EMS patient was found unresponsive and required BVM ventilation. Received 4 mg of Narcan in the field, and initially arrived at the ED alert but actively vomiting. Patient reports he has been clean for 7 years, though recently has been having some unspecified social stressors in his life and decided to use again today. Patient denies any history of IVDU, says he normally smokes heroin. Patient uncertain of events surrounding his overdose, thought he was at his hotel but was found at a different house. Patient denies being in any pain. Chronic cough and shortness of breath around baseline. Denies chest pain/pressure, palpitations. No fever, chills, abdominal pain. Denies headache, acute vision changes. Of note, patient reports being admitted to [facility] a couple of weeks ago for pneumonia. In the ED pt was tachycardic up to 115, tachypneic up to 26, satting as low as 89% on RA. Labs were significant for WBCs 11.8, H&H 13.540.2, AST 71. No electrolyte abnormalities. Troponin 9.0. Tested negative for influenza type a B, COVID. CXR showed right basilar hazy opacities could reflect infectious/inflammatory process. Pt was treated with IVF, ondansetron, and Zosyn. Pt will be admitted to the hospital under observation for treatment and further evaluation of acute hypoxic respiratory failure in the setting of likely aspiration pneumonitis secondary to opioid overdose. hospital course: patient was admitted for acute hypoxic respiratory failure due to aspiratoin penumonia vs pneuymonitis due to unintentioal heroin overdose complicated by acute toxic metabolic encephalopathy furether complicated by copd with acute decompensation. she was treated with iv steroids, zosyn. mental status returned to baseline. weaned off o2. ideally, would stay longer for iv abx, monitor o2 and treat potential opiate withdrawal. however, patient would like to be discharged home and is not interested in further inpatient care. will be discharged on 5 more days prednisone and Augmentin. Time Attestation Discharge coordination time: Greater than 30 minutes Quality: Safe Use of Opioids Does Pt have an Active Cancer Diagnosis on the Problem List?: No Quality: Stroke Does the patient have a stroke diagnosis?: No Physical Exam Vital Signs: Vital Signs: Last Vital Signs Temp 97.7 F 08/11/23 08:00 Pulse 83 08/11/23 08:00 Resp 18 08/11/23 08:00 BP 129/68 08/11/23 08:00 Pulse Ox 92 08/11/23 08:00 O2 Del Method Room Air 08/11/23 08:00 O2 Flow Rate 1 08/10/23 23:20 BMI result Body Mass Index 23.1 rll crackles General: AO X 3, no acute distress Resp: no accessory muscles used CVS: S1,S2,RRR GI: soft, non tender, non distended Neuro: motor grossly intact, alert Psych: appropriate affect, appropriate insight DS: Data Data Completed and Pending Labs on day of discharge: Laboratory Results - last 24 hr 08/10/23 08/10/23 08/10/23 12:05 16:36 18:01 WBC RBC Hgb Hct MCV MCH MCHC RDW Plt Count MPV Absolute Nucleated RBC Nucleated RBC % (auto) Sodium Potassium Chloride Carbon Dioxide Anion Gap BUN Creatinine Estim Creat Clear Calc Estimated GFR POC Glucose 74 Random Glucose Calcium Urine Opiates Screen POSITIVE H Urine Fentanyl Screen POSITIVE H Ur Barbiturates Screen Not Detected Ur Phencyclidine Scrn Not Detected Ur Amphetamines Screen Not Detected U Benzodiazepines Scrn Not Detected Urine Cocaine Screen POSITIVE H U Marijuana (THC) Screen Not Detected Influenza Type A (PCR) NEGATIVE Influenza Type B (PCR) NEGATIVE RSV RNA Qual (PCR) NEGATIVE SARS-CoV-2 RNA (RT-PCR) NEGATIVE 08/11/23 04:58 WBC 8.6 RBC 3.64 L Hgb 11.1 L Hct 34.0 L MCV 93.4 MCH 30.5 MCHC 32.6 RDW 12.6 Plt Count 155 L MPV 9.6 Absolute Nucleated RBC 0.000 Nucleated RBC % (auto) 0.0 Sodium 141 Potassium 4.2 Chloride 109 H Carbon Dioxide 24 Anion Gap 12 BUN 15 Creatinine 0.99 Estim Creat Clear Calc 72.7 Estimated GFR > 60 POC Glucose Random Glucose 111 Calcium 8.7 Urine Opiates Screen Urine Fentanyl Screen Ur Barbiturates Screen Ur Phencyclidine Scrn Ur Amphetamines Screen U Benzodiazepines Scrn Urine Cocaine Screen U Marijuana (THC) Screen Influenza Type A (PCR) Influenza Type B (PCR) RSV RNA Qual (PCR) SARS-CoV-2 RNA (RT-PCR) Discharge Plan Discharge Anticipated Discharge Date/Time: 08/11/23 09:12 Patient Disposition: Home, Self-Care Discharge Diagnosis: opiate overdose Referrals: Physician,Unknown J [Primary Care Provider] - 1 Week Discharge Medications: New prednisone 20 mg tablet 40 mg PO DAILY Qty: 10 0RF amoxicillin-pot clavulanate 875-125 mg tablet 1 tab PO BID Qty: 10 0RF Continued quetiapine 100 mg Tablet 100 mg PO BEDTIME docusate sodium 100 mg Capsule 100 mg PO BID PRN (Reason: Constipation) prazosin 2 mg Capsule 2 mg PO BEDTIME levalbuterol tartrate 45 mcg/actuation Hfa Aerosol Inhaler 2 inh INHALATION QID PRN (Reason: Shortness Of Breath Or Wheezing) ferrous gluconate 324 mg (38 mg iron) Tablet 324 mg PO DAILY Trelegy Ellipta 200-62.5-25 mcg Blister With Device 1 inh INHALATION DAILY Discharge Orders: Discharge Order (Routine); Ordered 08/11/23 Ordered By: Arcadio Pendleton Diet: Advance to usual diet Activity on Discharge: As tolerated Stand Alone Forms: Patient Portal Discharge page Care Plan Goals: recovery Health Concerns: opjohnny stevens Plan of Treatment: augmentin, prednisone Assessment: see above
--- NOTE | 2023-08-11 10:29 | MHC.CM.PN ---
PT DCD HOME PRIOR TO BEING SEEN BY CM..PT DCD HOME NO SERVIES
== END 2023-08-11 09:44 | disposition home or self-care (01) | DRG 917 ==
LOC: HO.ED 13:38 → HO.EDOVER 13:42 → HO.S3 16:52
PROVIDERS: Admitting Provider Student in an Organized Health Care Education/Training Program; Emergency Provider Emergency Medicine; Visit Provider Internal Medicine
DX: T40.1X1A Poisoning by heroin, accidental (unintentional), initial encounter (principal); G92.8 Other toxic encephalopathy; J69.0 Pneumonitis due to inhalation of food and vomit; J96.01 Acute respiratory failure with hypoxia; F11.10 Opioid abuse, uncomplicated; J44.9 Chronic obstructive pulmonary disease, unspecified; Z20.822 Contact with and (suspected) exposure to COVID-19; Z79.899 Other long term (current) drug therapy
CPT/HCPCS: 0241U; 36415; 71046; 80048; 80053; 80307; 82947; 84484; 85025; 85027; 87040; 93005; 94640; 99221; 99285; J1650; J2405; J2543; J2920

== ENCOUNTER → 2023-08-10 13:41 | Outpatient (BNV) | payer MEDICARE, SELFPAY | PROVIDERS: Admitting Provider Student in an Organized Health Care Education/Training Program; Emergency Provider Emergency Medicine; Visit Provider Student in an Organized Health Care Education/Training Program | DX: T40.2X1A Poisoning by other opioids, accidental (unintentional), initial encounter (principal); J96.01 Acute respiratory failure with hypoxia; J44.1 Chronic obstructive pulmonary disease with (acute) exacerbation | CPT/HCPCS: 99222; 99238 ==

== ENCOUNTER → 2023-08-10 15:12 | Outpatient (BNV) | payer MEDICARE, SELFPAY | PROVIDERS: Admitting Provider Student in an Organized Health Care Education/Training Program; Emergency Provider Emergency Medicine; Visit Provider Internal Medicine Cardiovascular Disease | DX: T40.2X1A Poisoning by other opioids, accidental (unintentional), initial encounter (principal) | CPT/HCPCS: 93010 ==

== ENCOUNTER 2023-11-05 10:09 | Outpatient (AMB) | payer OTHER, SELFPAY ==
[2023-11-05 10:47] VITALS: BP 132/86; PULSE 77; O2SAT 98; BMI 24.0
--- NOTE | 2023-11-05 10:47 | A.OFFVIS_ITS ---
Vital Signs 11/05/23 10:47 Height 5 ft 10 in Weight 167 lb 2 oz BMI 24.0 BP 132/86 Blood Pressure Location Lt brachial Position Sitting Pulse 77 Pulse Source Pulse Oximeter Pulse Oximetry (%) 98 Oxygen Delivery Method Room Air Intake Visit Reasons: COPD Allergies haloperidol [Haldol] Allergy (Unknown, Verified 11/05/23 10:56) Anaphylaxis Wellbutrin Allergy (Unknown, Uncoded 11/05/23 10:56) Hives HPI HPI COPD: Details: Franc is a pleasant 68-year-old male, former smoker with 52 pack year history, quit in 2019 of underlying COPD, GERD, Mckeon's esophagus and s/p surgical resection of carcinoma of colon in his 30s. He was referred by the [place] for pulmonary evaluation. He reports suboptimal response on Trelegy and albuterol MDI. He continues to report dyspnea on minimal exertion and intermittent and productive cough with clear sputum as well as wheezing. He denies any recent PFTs. He is a part of the lung cancer screening program through the [place], his last chest CT was performed in January 2023 which revealed stable nodules, largest of the right upper lobe measuring 7.4 mm. PET scan performed in April 2022 was negative, SUV1.12. He does have an upcoming scan scheduled this summer. He reports asbestos exposure while in the [employer] as well as after he left the . He denies any pertinent family history. He reports possible seasonal allergies as he notes his symptoms have been more triggered this past month. He denies any recent RAST testing. While reviewing records did no he had an abnormal echo from 11/06 which revealed LVEF 42% as well as RVSP 40 mmHg. He denies any further follow-up from a trauma manager. He denies any orthopnea or bilateral lower extremity edema at this time. [facility] Medical History (Updated 11/05/23 @ 12:47 by Concepcion Shaw NP) Colon cancer COPD (chronic obstructive pulmonary disease) BPH (benign prostatic hyperplasia) Social History Household Members: None Housing: Other Housing Other:: Renting a room Do you presently have visiting nurse or other home services: No Alcohol intake: never Patient Tobacco Use Status: Former Tobacco user Substance Use Type: Crack/Cocaine Review of Systems Const Denies chills, Denies excessive sweating, Denies fever(s), Denies headache(s) and Denies night sweats Eyes Denies dry eyes, Denies irritation and Denies itchy eyes ENT Reports Normal hearing present, Denies headache(s), Denies nasal congestion, Denies nasal discharge and Denies sore throat Card Denies chest pain, Denies chest pain at rest, Denies chest pain with activity, Denies claudication, Denies leg edema, Denies orthopnea and Denies paroxysmal nocturnal dyspnea Resp Denies chest congestion, Denies excessive phlegm production, Denies pain on inspiration, Denies pain with cough and Denies stridor Musc Denies myalgias Neuro Reports Normal hearing present and Denies headache(s) Endo Denies excessive sweating Emery/Lymph Denies lymphadenopathy Aller/Immun Denies itchy eyes and Denies seasonal rhinorrhea Physical Exam Vital Signs: Last Vital Signs Pulse 77 11/05/23 10:47 BP 132/86 11/05/23 10:47 Pulse Ox 98 11/05/23 10:47 Oxygen Delivery Method Room Air 11/05/23 10:47 BMI result Body Mass Index 24.0 Const General: cooperative, healthy appearing, comfortable, no acute distress, well developed and alert Orientation/consciousness: patient oriented x3 Limitations: no limitations HEENT Head: Yes normal to inspection, Yes normocephalic and Yes atraumatic Ears: hearing grossly normal bilaterally and external ears normal Eyes General: appearance normal, both eyes and all related structures Eyelids: Yes eyelids normal Sclerae: sclerae normal EOM: EOMs intact bilaterally Neck Neck: Yes normal visual inspection and Yes no lymphadenopathy Lymphatic: no lymphadenopathy noted Chest Chest palpation & inspection: normal inspection of the chest Resp Other: Diminished lung sounds throughout with rhonchi Effort & Inspection: normal respiratory effort, able to speak in complete sentences, no audible wheezes, no cough, no stridor, not tachypneic, no tripod positioning and no use of accessory muscles Cardio Jugular venous distension: no JVD Rate: regular rate Rhythm: regular rhythm Skin Other: warm, dry General skin exam: no rashes or lesions noted Neuro General: patient oriented x3 Cranial nerves: Yes Normal hearing present Cognition (Neuro): normal cognition Gait exam (Neuro): Normal gait present Extrem General: Yes normal to inspection, Yes capillary refill normal, Yes no clubbing, cyanosis or edema and Yes no pedal edema Psych Appearance: grossly normal and well kempt Speech and movement: Normal speech and movement present and Clear speech present Affect: normal affect Attitude: cooperative Thought process: Normal thought process present Thought content: Normal thought content present Insight: Good insight present (Psych) Judgement: Good judgement present (Psych) Assessment & Plan Assessment & Plan (1) COPD (chronic obstructive pulmonary disease): Code(s): J44.9 - Chronic obstructive pulmonary disease, unspecified Category: Medical (2) Environmental allergies: Code(s): Z91.09 - Other allergy status, other than to drugs and biological substances Category: Medical (3) Dyspnea on exertion: Code(s): R06.09 - Other forms of dyspnea Category: Medical Plan Franc's symptoms are likely related to COPD, unclear severity. Will send for PFT to assess. Patient reports suboptimal control on Trelegy and reported symptomatic relief with use of DuoNeb in office. [facility] as well as DuoNeb to use 1-2 times per day. Will also send in prednisone x 5 days. Patient also noticed symptoms were worsening over the last month which could be related to seasonal allergies, he denies any recent allergy testing. Will send for RAST testing. When reviewing chart patient with abnormal echo from 2011, LVEF 42% and RVSP 40 with no reported follow-up. Will also send for echo. Once repeat chest CT is performed this summer, will request images as well as report. Will also perform 6MWT at the next visit. All questions were answered and patient in agreement of plan. Will follow-up to review results or sooner if needed. Orders: Orders Complete Blood Count Auto Diff Today Z91.09 - Other allergy status, other than to drugs and biological substances Immunoglobulin E Today Z91.09 - Other allergy status, other than to drugs and biological substances PFT pulmonary function test Today J44.9 - Chronic obstructive pulmonary disease, unspecified CA echo transthoracic complete Today R06.09 - Other forms of dyspnea Resp Allergy Profile Region I Today Z91.09 - Other allergy status, other than to drugs and biological substances Medications: New prednisone 40 mg (2 x 20 mg) PO DAILY 10 tabs 0RF ipratropium-albuterol 0.5 mg-3 mg(2.5 mg base)/3 mL 3 mL inhalation Q6H PRN 180 mL 3RF wheezing Coding Level of Care Code New Pt Level 4 (33598) Diagnoses COPD (chronic obstructive pulmonary disease) J44.9 Environmental allergies Z91.09 Dyspnea on exertion R06.09
== END 2023-11-05 11:51 | disposition home or self-care (01) ==
PROVIDERS: Referring Provider Nurse Practitioner Family; Visit Provider Nurse Practitioner Family
DX: J44.9 Chronic obstructive pulmonary disease, unspecified (principal); Z91.09 Other allergy status, other than to drugs and biological substances; R06.09 Other forms of dyspnea
CPT/HCPCS: 99204

== ENCOUNTER 2023-11-05 10:09 | Outpatient (REF) | payer OTHER, SELFPAY ==
[2023-11-05 14:27] LABS: MANUAL DIFF FLAG NO
[2023-11-05 14:33] LABS: Basophils Percent Auto 0.4 % (0-2); Eosinophils Absolute Auto 0.1 X10*3/uL (0.0-0.4); Eosinophils Percent Auto 1.4 % (0-4); Hematocrit 37.6 % (42.0-52.0); Hemoglobin 12.7 g/dl (14.0-18.0); Imm Gran Abs Auto 0.03 X10*3/uL (0.00-0.03); Imm Gran Pct Auto 0.4 % (0.0-0.4); Lymphocytes Absolute Auto 2.4 X10*3/uL (1.2-4.9); Lymphocytes Percent Auto 33.1 % (20-40); Mean Corpuscular HGB Conc 33.8 g/dl (31.0-36.0); Mean Corpuscular Hemoglobin 31.4 pg (27.0-33.0); Mean Corpuscular Volume 93.1 fL (80.0-98.0); Mean Platelet Volume 9.6 fL (9.4-12.4); Monocytes Absolute Auto 0.5 X10*3/uL (0.1-1.2); Monocytes Percent Auto 7.2 % (2-11); Neutrophils Absolute Auto 4.2 x10*3/uL (2.0-8.3); Neutrophils Percent Auto 57.5 % (45-73); Platelet Count 176 X10*3/uL (160-400); Red Blood Count 4.04 X10*6/uL (4.60-5.80); White Blood Count 7.3 X10*3/uL (4.8-10.8)
[2023-11-06 13:47] LABS: Class Alternaria alternata 0; Class Aspergillus fumigatus 0; Class Bermuda Grass 0; Class Birch 0; Class Cat Dander 0; Class Cladosporium herbarum 0; Class Cockroach 0; Class Common Ragweed 0; Class Cottonwood 0; Class Derm. pterony 0; Class Dermatophagoides farinae 0; Class Dog Dander 0; Class Elm 0; Class Maple Box Elder 0; Class Mountain Cedar 0; Class Mouse Urine Protein 0; Class Mugwort 0; Class Oak 0; Class Penicillium crysogenum 0; Class Rough Pigweed 0; Class Sheep Sorrel 0; Class Sycamore 0; Class Timothy Grass 0; Class Walnut Tree 0; Class White Ash 0; Class White Mulberry 0; D001 IgE D pteronyssinus <0.10 kU/L; D002 - IgE D farinae <0.10 kU/L; E001 - IgE Cat Dander <0.10 kU/L; E005 - IgE Dog Dander <0.10 kU/L; E072-IgE Mouse Urine <0.10 kU/L; G002 IgE Bermuda Grass <0.10 kU/L; G006 - IgE Timothy Grass <0.10 kU/L; I006-IgE Cockroach, German <0.10 kU/L; Immunoglobulin E <2 kU/L (<OR=114); M001 IgE Penicillium chrysogen <0.10 kU/L; M002 - IgE Cladosporium herbar <0.10 kU/L; M003 - IgE Aspergillus fumigat <0.10 kU/L; M006 - IgE Alternaria alternat <0.10 kU/L; T001 IgE Maple/Box Elder <0.10 kU/L; T003 IgE Common Silver Birch <0.10 kU/L; T006 - IgE Cedar, Mountain <0.10 kU/L; T007 - IgE Oak, White <0.10 kU/L; T008 IgE Elm, American <0.10 kU/L; T010 - IgE Walnut <0.10 kU/L; T011 - IgE Maple Leaf Sycamore <0.10 kU/L; T014 - IgE Cottonwood <0.10 kU/L; T015 - IgE Ash, White <0.10 kU/L; T070 - IgE White Mulberry <0.10 kU/L; W001 - IgE Ragweed, Short <0.10 kU/L; W006 - IgE Mugwort <0.10 kU/L; W014 IgE Pigweed, Common <0.10 kU/L; W018 IgE Sheep Sorrel <0.10 kU/L
== END 2023-11-05 10:10 | disposition home or self-care (01) ==
LOC: HO.WFDLDS 10:09
PROVIDERS: Visit Provider Nurse Practitioner Family
DX: J44.9 Chronic obstructive pulmonary disease, unspecified (principal); R06.09 Other forms of dyspnea; Z91.09 Other allergy status, other than to drugs and biological substances; Z87.891 Personal history of nicotine dependence
CPT/HCPCS: 36415; 82785; 85025; 86003; 94640; 99202

== ENCOUNTER → 2023-11-28 10:23 | Outpatient (REF) | payer OTHER, SELFPAY ==
--- NOTE | 2023-11-28 10:26 | CA_ITS ---
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 Mildly reduced LV ejection fraction of 45-50% with grade 1 diastolic dysfunction 2. Mild aortic regurgitation 3. Normal RV systolic pressure 4. Mildly dilated ascending aorta at 3.9 cm 5. No pericardial effusion Findings Left Ventricle Normal left ventricular cavity size. There is normal left ventricular wall thickness. The left ventricular systolic function is mildly decreased. The visually estimated ejection fraction is between 45-50%. Spectral Doppler is indicative of an impaired relaxation filling pattern. E/E prime ratio is <8, consistent with normal filling pressures. Evidence suggests grade I (mild) diastolic dysfunction. Peak GLS is -15.5%, mildly reduced. Right Ventricle Normal right ventricular cavity size and systolic function. Atria Both atria are normal in size. There is no evidence of interatrial shunt. Aortic Valve There is mild calcification of the aortic valve. There is mild aortic valve regurgitation. Mitral Valve Normal mitral valve structure and function. There is trace mitral valve regurgitation. There is no mitral valve stenosis. Pulmonic Valve The pulmonic valve was not well visualized. Tricuspid Valve Likely normal tricuspid valve structure and function. There is trace tricuspid valve regurgitation. The right ventricular systolic pressure is normal. The right ventricular systolic pressure is 27 mmHg. Normal right atrial pressure. There is no evidence of pulmonary hypertension. Great Vessels The pulmonary artery was not well visualized. There is mild dilatation of the ascending aorta measuring 3.90 cm. Venous The inferior vena cava is normal in size and collapses greater than 50% with inspiration. Pericardium/Pleural There is no evidence of pericardial effusion. Prior Study Comparison No prior study available for comparison. Measurements 2D Linear Measurements IVSd: 1.08 0.6-0.9/0.6-1.0 cm LVIDd: 4.28 3.9-5.3/4.2-5.9 cm LVIDd Index: 2.33 2.4-3.2/2.2-3.1 cm/m2 LVIDs: 3.06 2.0-3.6 cm LVPWd: 0.98 0.7-1.1 cm LA Diam: 2.80 2.7-3.8/3.0-4.0 cm LAIDs Index: 1.52 1.5-2.3 cm/m2 LV Mass: 183.62 67-162/88-224 g LV Mass Index: 99.79 43-95/49-115 g/m2 LVOT Diam: 2.30 3.0+(-)1.3 cm 2D Systolic Function EF 4C: 53.70 >55% EF 2C: 47.40 >55% EF BiP: 49.90 >55% Mitral Valve MV Pk E: 0.60 MV PK A: 0.83 MV Decel Time: 203.00 E/A: 0.70 E'Lateral: 7.72 E'Medial: 6.53 E/E' Med: 9.10 E/E' Lat: 7.70 PHT: 59.00 MVA PHT: 3.73 Decel [place]: 2.93 Aortic Valve AoV Pk Barry: 1.21 AoV Mn Barry: 0.81 AoV VTI: 0.25 AoV Pk Grad: 6.00 Aov Mn Grad: 3.00 HANS Cont.VTI: 4.17 LVOT LVOT Pk Barry: 0.99 LVOT Mn Barry: 0.64 LVOT VTI: 0.25 LVOT Pk Grad: 4.00 LVOT Mn Grad: 2.00 LVOT Diam: 2.30 LVOT Area: 4.15 Diastolic Function MV Pk E: 0.60 MV Pk A: 0.83 E/A: 0.70 E'Medial: 6.53 E/E' Med: 9.10 E' Laterial: 7.72 E/E' Lat: 7.70 Right Ventricle TAPSE (mm): 24.40 TVS' Barry: 12.70 Tricuspid Valve TR Pk Barry: 2.43 TR Pk Grad: 24.00 RA Press: 3.00 RVSP: 27.00 Great Vessels Aorta Sinus of Valsalva: 3.88 2.0-3.5 cm Ao Asc: 3.90 2.1-3.4 cm Updated in Other Vendor System with Status of Final Saeed Hicks MD electronically signed on 11/28/2023 5:38:02 PM with status of Final
== END ==
LOC: HO.CARD 10:23
PROVIDERS: Visit Provider Nurse Practitioner Family
DX: R06.09 Other forms of dyspnea (principal)
CPT/HCPCS: 93306; 93356

== ENCOUNTER → 2023-11-28 10:26 | Outpatient (BNV) | payer OTHER, SELFPAY | PROVIDERS: Visit Provider Internal Medicine Cardiovascular Disease | DX: I35.1 Nonrheumatic aortic (valve) insufficiency (principal); I35.8 Other nonrheumatic aortic valve disorders | CPT/HCPCS: 93306; 93356 ==

== ENCOUNTER 2024-02-25 11:06 | Outpatient (AMB) | payer OTHER, SELFPAY ==
[2024-02-25 11:29] VITALS: BP 124/76; PULSE 85; O2SAT 96; BMI 23.7
--- NOTE | 2024-02-25 11:29 | A.OFFVIS_ITS ---
Vital Signs 02/25/24 11:29 Height 5 ft 10 in Weight 165 lb 6 oz BMI 23.7 BP 124/76 Blood Pressure Location Lt brachial Position Sitting Pulse 85 Pulse Source Pulse Oximeter Pulse Oximetry (%) 96 Oxygen Delivery Method Room Air Intake Visit Reasons: COPD/Echo & PFT Follow Up Allergies haloperidol [Haldol] Allergy (Unknown, Verified 02/25/24 11:33) Anaphylaxis Wellbutrin Allergy (Unknown, Uncoded 02/25/24 11:33) Hives HPI HPI COPD/Echo & PFT Follow Up: Details: Franc is a pleasant 68-year-old male, former smoker with 52 pack year history, quit in 2019 of underlying COPD, GERD, Mckeon's esophagus and s/p surgical resection of carcinoma of colon in his 30s. He reported suboptimal response on Trelegy and albuterol MDI, so DuoNeb was added to his regimen, but continues to report dyspnea on exertion, intermittent productive cough with clear sputum as well as wheezing. Prior echo from 2011 which revealed LVEF 42% as well as RVSP 40 mmHg. 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 He denies any orthopnea or bilateral lower extremity edema at this time. Today he presents to review PFT and echo. [facility] Medical History (Updated 11/05/23 @ 12:47 by Concepcion Shaw NP) Colon cancer COPD (chronic obstructive pulmonary disease) BPH (benign prostatic hyperplasia) Social History Household Members: None Housing: Other Housing Other:: Renting a room Do you presently have visiting nurse or other home services: No Alcohol intake: never Patient Tobacco Use Status: Former Tobacco user Substance Use Type: Crack/Cocaine Review of Systems Const Denies chills, Denies excessive sweating, Denies fever(s), Denies headache(s) and Denies night sweats Eyes Denies dry eyes, Denies irritation and Denies itchy eyes ENT Reports Normal hearing present, Denies headache(s), Denies nasal congestion, Denies nasal discharge and Denies sore throat Card Denies chest pain, Denies chest pain at rest, Denies chest pain with activity, Denies claudication, Denies leg edema, Denies orthopnea and Denies paroxysmal nocturnal dyspnea Resp Denies chest congestion, Denies excessive phlegm production, Denies pain on inspiration, Denies pain with cough and Denies stridor Musc Denies myalgias Neuro Reports Normal hearing present and Denies headache(s) Endo Denies excessive sweating Emery/Lymph Denies lymphadenopathy Aller/Immun Denies itchy eyes and Denies seasonal rhinorrhea Physical Exam Vital Signs: Last Vital Signs Pulse 85 02/25/24 11:29 BP 124/76 02/25/24 11:29 Pulse Ox 96 02/25/24 11:29 Oxygen Delivery Method Room Air 02/25/24 11:29 BMI result Body Mass Index 23.7 Const General: cooperative, healthy appearing, comfortable, no acute distress, well developed and alert Orientation/consciousness: patient oriented x3 Limitations: no limitations HEENT Head: Yes normal to inspection, Yes normocephalic and Yes atraumatic Ears: hearing grossly normal bilaterally and external ears normal Eyes General: appearance normal, both eyes and all related structures Eyelids: Yes eyelids normal Sclerae: sclerae normal EOM: EOMs intact bilaterally Neck Neck: Yes normal visual inspection and Yes no lymphadenopathy Lymphatic: no lymphadenopathy noted Chest Chest palpation & inspection: normal inspection of the chest Resp Effort & Inspection: normal respiratory effort, able to speak in complete senten laureen, no audible wheezes, no cough, no stridor, not tachypneic, no tripod positioning and no use of accessory muscles Auscultation: no wheezes and diminished lung sounds Cardio Jugular venous distension: no JVD Rate: regular rate Rhythm: regular rhythm Skin Other: warm, dry General skin exam: no rashes or lesions noted Neuro General: patient oriented x3 Cranial nerves: Yes Normal hearing present Cognition (Neuro): normal cognition Gait exam (Neuro): Normal gait present Extrem General: Yes normal to inspection, Yes capillary refill normal, Yes no clubbing, cyanosis or edema and Yes no pedal edema Psych Appearance: grossly normal and well kempt Speech and movement: Normal speech and movement present and Clear speech present Affect: normal affect Attitude: cooperative Thought process: Normal thought process present Thought content: Normal thought content present Insight: Good insight present (Psych) Judgement: Good judgement present (Psych) Office Procedures 6 Minute Walk Time:: 11:54 SPO2 % at rest: 96 Pulse at rest: 80 SPO2 % during excercise: 94 Pulse during excercise: 102 SPO2 % after excercise: 97 Pulse after excercise: 93 Distance in yards walked: 150 Gerald Score: 7 Performance Observations:: Patient walked unassisted on level ground at a moderate pace. Patient maintained O2 saturation of 94% or greater and pulse of 102 or less for the entirety of the walk. Patient does get short of breath but reports it is worse when walking on an incline or lifting heavy things. No supplemental oxygen was required. [address] - 6 Minute Walk Assessment & Plan Assessment & Plan (1) COPD (chronic obstructive pulmonary disease): Code(s): J44.9 - Chronic obstructive pulmonary disease, unspecified Category: Medical (2) Dyspnea on exertion: Code(s): R06.09 - Other forms of dyspnea Category: Medical Plan Reviewed PFT which revealed moderate obstructive defect, with mildly decreased DLCO 76%, suggestive of emphysema which is noted in prior LDCT. He will have LDCT performed in May 2024 through lung cancer screening program at the [place], last CT RADS 2. Echo continues to reveal LVEF 45-50% however RVSP within normal range now. Consider cardiology referral. He reports suboptimal effect with Trelegy and using DuoNeb infrequently. Will switch to Breztri and encouraged use of DuoNeb QD. 6MWT performed and patient does not require supplemental oxygen at this time. Will follow up to assess response to Breztri or sooner if needed. All questions were answered and patient in agreement of plan. Orders: Orders AMB 6 minute walk 02/25/24 J44.9 - Chronic obstructive pulmonary disease, unspecified Medications: New [id number] 160-9-4.8 mcg/actuation (Breztri Aerosphere) 2 inhalations inhalation BID 10.7 grams 6RF Refilled ipratropium-albuterol 0.5 mg-3 mg(2.5 mg base)/3 mL 3 mL inhalation Q6H PRN 180 mL 3RF wheezing Coding Level of Care Code Est Pt Level 4 (03661) Diagnoses COPD (chronic obstructive pulmonary disease) J44.9 Dyspnea on exertion R06.09 CPT Codes Coding ([id number])
[2024-02-25 13:34] VITALS: PULSE 80; O2SAT 96
== END 2024-02-25 12:11 | disposition home or self-care (01) ==
PROVIDERS: PCP Internal Medicine; Visit Provider Nurse Practitioner Family
DX: J44.9 Chronic obstructive pulmonary disease, unspecified (principal)
CPT/HCPCS: 94618; 99214

== ENCOUNTER → 2024-02-25 11:06 | Outpatient (BNVA) | payer OTHER, SELFPAY | PROVIDERS: Visit Provider Nurse Practitioner Family | DX: J44.9 Chronic obstructive pulmonary disease, unspecified (principal); R06.09 Other forms of dyspnea | CPT/HCPCS: 94618; 99212 ==

== ENCOUNTER 2024-12-28 10:06 | Outpatient (AMB) | payer OTHER, SELFPAY ==
--- NOTE | 2024-12-28 10:21 | A.OFFVIS_ITS ---
Vital Signs 12/28/24 10:24 Height 5 ft 10 in Weight 153 lb 6 oz BMI 22.0 BP 100/58 L Blood Pressure Location Rt brachial Position Sitting Pulse 78 Pulse Source Pulse Oximeter Pulse Oximetry (%) 98 Oxygen Delivery Method Room Air Intake Visit Reasons: COPD Allergies haloperidol (Haldol) Allergy (Unknown, Verified 12/28/24 10:26) Anaphylaxis Wellbutrin Allergy (Unknown, Uncoded 12/28/24 10:26) Hives HPI HPI COPD: Details: Franc is a pleasant 69-year-old male, former smoker with 52 pack year history, quit in 2019 of underlying moderate to severe COPD, GERD, Mckeon's esophagus and s/p surgical resection of carcinoma of colon in his 30s. He reported suboptimal response on Trelegy and albuterol MDI, DuoNeb was added to his regimen with minimal improvement and continues to report dyspnea on exertion, intermittent productive cough with clear sputum as well as wheezing. Of note, patient homeless, currently on a housing waitlist and no longer has a nebulizer but [facility] Prior echo from 2011 which revealed LVEF 42% as well as RVSP 40 mmHg. Updated echo continues to reveal LVEF 45-50% however RVSP within normal range nowHe was reportedly evaluated by cardiology who states evaluation did not reveal anything of significance, no records available today. Since the last visit, he reports being admitted to [facility] secondary to COPD exaceration and discharged with prednisone. He reports since discharge moderate improvements. He also notes updated PFT performed at [facility]. [facility] Medical History (Updated 11/05/23 @ 12:47 by Concepcion Shaw NP) Colon cancer COPD (chronic obstructive pulmonary disease) BPH (benign prostatic hyperplasia) Social History Household Members: None Housing: Other Housing Other:: Renting a room Do you presently have visiting nurse or other home services: No Alcohol intake: never Patient Tobacco Use Status: Former Tobacco user Substance Use Type: Crack/Cocaine Review of Systems Const Denies chills, Denies excessive sweating, Denies fever(s), Denies headache(s) and Denies night sweats Eyes Denies dry eyes, Denies irritation and Denies itchy eyes ENT Reports Normal hearing present, Denies headache(s), Denies nasal congestion, Denies nasal discharge and Denies sore throat Card Denies chest pain, Denies chest pain at rest, Denies chest pain with activity, Denies claudication, Denies leg edema, Reports dyspnea on exertion, Denies orthopnea and Denies paroxysmal nocturnal dyspnea Resp Denies change in phlegm color, Denies chest congestion, Reports cough, Denies hemoptysis, Denies excessive phlegm production, Denies pain on inspiration, Denies pain with cough, Reports dyspnea on exertion, Denies stridor and Reports wheezing Musc Denies myalgias Neuro Reports Normal hearing present and Denies headache(s) Endo Denies excessive sweating Emery/Lymph Denies lymphadenopathy Aller/Immun Denies itchy eyes, Denies seasonal rhinorrhea and Reports wheezing Physical Exam Vital Signs: Last Vital Signs Pulse 78 12/28/24 10:24 BP 100/58 L 12/28/24 10:24 Pulse Ox 98 12/28/24 10:24 Oxygen Delivery Method Room Air 12/28/24 10:24 BMI result Body Mass Index 22.0 Const General: cooperative, healthy appearing, comfortable, no acute distress, well developed and alert Orientation/consciousness: patient oriented x3 Limitations: no limitations HEENT Head: Yes normal to inspection, Yes normocephalic and Yes atraumatic Ears: hearing grossly normal bilaterally and external ears normal Eyes General: appearance normal, both eyes and all related structures Eyelids: Yes eyelids normal Sclerae: sclerae normal EOM: EOMs intact bilaterally Neck Neck: Yes normal visual inspection and Yes no lymphadenopathy Lymphatic: no lymphadenopathy noted Chest Chest palpation & inspection: normal inspection of the chest Resp Effort & Inspection: normal respiratory effort, able to speak in complete sentences, no audible wheezes, no cough, no stridor, not tachypneic, no tripod positioning and no use of accessory muscles Auscultation: no wheezes and diminished lung sounds Cardio Jugular venous distension: no JVD Rate: regular rate Rhythm: regular rhythm Skin Other: warm, dry General skin exam: no rashes or lesions noted Neuro General: patient oriented x3 Cranial nerves: Yes Normal hearing present Cognition (Neuro): normal cognition Gait exam (Neuro): Normal gait present Extrem General: Yes normal to inspection, Yes capillary refill normal, Yes no clubbing, cyanosis or edema and Yes no pedal edema Psych Appearance: grossly normal and well kempt Speech and movement: Normal speech and movement present and Clear speech present Affect: normal affect Attitude: cooperative Thought process: Normal thought process present Thought content: Normal thought content present Insight: Good insight present (Psych) Judgement: Good judgement present (Psych) Assessment & Plan Assessment & Plan (1) COPD (chronic obstructive pulmonary disease): Code(s): J44.9 - Chronic obstructive pulmonary disease, unspecified Category: Medical (2) Dyspnea on exertion: Code(s): R06.09 - Other forms of dyspnea Category: Medical Plan Prior PFT which revealed moderate obstructive defect, with mildly decreased DLCO 76%, he reports updated PFT recently performed, will attempt to obtain. He r eportedly had LDCT performed in May 2024 through lung cancer screening program at the [place], last CT RADS 2. Will attempt to obtain. He reported suboptimal effect with Trelegy and using DuoNeb infrequently. Attempted to send in [facility] however prefers Trelegy, will continue with this as well as DuoNeb once he receives new machine from the [place]. Will consider theophylline and obtain prior labs/records from [facility]. All questions were answered and patient in agreement of plan. Will follow up in 4 weeks or sooner if needed. Coding Level of Care Code Est Pt Level 4 (92527) Diagnoses COPD (chronic obstructive pulmonary disease) J44.9 Dyspnea on exertion R06.09
[2024-12-28 10:24] VITALS: BP 100/58; PULSE 78; O2SAT 98; BMI 22.0
--- OUTSIDE RECORDS SUMMARY | 2024-12-28 10:50 | XMS_ITS | Clinical Summary ---
Author Organization [facility] Address [address] [place] [address] Care Team Providers Care Clinical Pharmacist Name Role Phone MarekCristin Primary Care Provider [phone] Allergies Active Allergy Reactions Criticality Noted Date Comments Bupropion Unknown 11/09/2011 Bupropion Hcl Hives High 07/14/2006 Haloperidol Anaphylaxis,Respirat ory Distress,Unknown High 06/10/[address] (PROTONIX) 20 mg tablet Take 20 mg by mouth. 4 Active zolpidem (AMBIEN) 5 mg tablet Take 5 mg by mouth nightly as needed. 4 Active QUEtiapine (SEROquel) 200 mg tablet Take 1 tablet by mouth at bed time. 4 Active OXcarbazepine (TRILEPTAL) 600 mg tablet Take 600 mg by mouth. 4 Active lithium 150 mg capsule Take 1 capsule by mouth at bed time. 4 Active levalbuterol (XOPENEX HFA) 45 mcg/actuation inhaler Inhale by mouth. 4 Active ipratropium-alb uteroL (DUO-NEB) 0.5-2.5 mg/3 mL nebulizer solution Inhale by mouth. 4 Active hydrOXYzine HCL (ATARAX) 10 mg tablet Take 10 mg by mouth. 4 Active fluticasone propionate (FLONASE) 50 mcg/actuation nasal spray Administer into affected nostril(s). [address] (CYMBALTA) 60 mg capsule Take 60 mg by mouth once a day. 4 Active docusate sodium (COLACE) 100 mg capsule Take 100 mg by mouth. 4 Active cyanocobalamin (VITAMIN B12) 100 mcg tablet Take 100 mcg by mouth once a day. 4 Active cetirizine (ZyrTEC) 10 mg tablet Take 10 mg by mouth. Active budesonide-glyc opyr-formoterol (BREZTRI AEROSPHERE) 160-9-4.8 mcg/actuation HFA aerosol inhaler Inhale by mouth. 4 Active atorvastatin (LIPITOR) 10 mg tablet Take 10 mg by mouth once a day. 4 Active albuterol (PROAIR HFA,VENTOLIN HFA) 90 mcg inhaler Inhale 2 puffs by mouth every 6 hours as needed. Active Active Problems Problem Noted Date Diagnosed Date Left upper lobe pulmonary nodule 08/02/2024 Right upper lobe pulmonary nodule 07/08/2024 Family History Medical History Relation Name Comments Colon cancer Father Kidney disease Mother Relation Name Status Comments Father Mother Social History Tobacco Use Types Packs/Day Years Used Date Smoking Tobacco: Former Cigarettes Q uit: 2019 Smokeless Tobacco: Never Alcohol Use Standard Drinks/Week Comments Not Currently 0 (1 standard drink = 0.6 oz pur e alcohol) quit 25 yrs ago Sex and Gender Information Value Date Recorded Sex Assigned at Male 07/26/2024 10:58 AM EST Legal Sex Male 4:50 PM EDT Gender Identity Male 07/26/2024 10:58 AM EST Sexual Orientation Queer 07/26/2024 10 :58 AM EST Last Filed Vital Signs Vital Sign Reading Time Taken Comments Blood Pressure 145/91 07/08/2024 1:17 PM EST Pulse 94 07/08/2024 1:17 PM EST Temperature 36.2 C (97.2 F) 07/08/2024 1:17 PM EST Respiratory Rate 19 07/08/2024 1:17 PM EST Oxygen Saturation 96% 07/08/2024 1:17 PM EST Inhaled Oxygen Concentration - - Weight 78.8 kg (173 lb 12.8 oz) 07/08/2024 1:17 PM EST Height 170.2 cm (5' 7 ) 06/30/2024 9:00 AM EST Body Mass Index 27.22 06/30/2024 9:00 AM EST Plan of Treatment Health Maintenance Due Date Last Done Comments Cologuard 1955 Colon Cancer Screening 1955 Colonoscopy 1955 FOBT / Fit Test 1955 Hepatitis C Screening 1955 Sigmoidoscopy 1955 RSV Vaccine (60+ years old a nd patients) (1 - Risk 60-74 years 1-dose series) 2014 CT Lung Cancer Screening (Baseline) 02/21/2024 02/20/2023, 11/13/2011 COVID-19 Vaccine (4 - 2023-2 5 season) 2024 06/11/2021, 07/11/2020, 06/20/2020 Alcohol/Substance Use Screening 06/23/2024 Depression Screening and Follow-Up 06/23/2024 Health Care Proxy Review 06/23/2024 Social Drivers of Health Pauline ual Screening 06/23/2024 Influenza Vaccine (#1) 2025 , 03/06/2023, 05/23/2022, Additional history exists DTaP,Tdap,and Td Vaccines (4 - Td or Tdap) 04/30/2032 04/30/2022, 07/30/2012, 07/30/2012, Additional history exists Hepatitis B Vaccines Completed 08/20/2018, 08/12/2017, 12/09/2001, Additional history exists Pneumococcal Vaccine: 50+ Years Completed 04/06/2019, 03/13/2017, 11/17/2011, Additional history exists Zoster Vaccines Completed 07/30/2021, 04/25, 03/28/2016 Abdominal Aortic Aneurysm (A AA) Screening Completed 08/26/2023 Insurance [employer] Care Teams Clinical Pharmacist Relationship Specialty Start Date End Date Cristin [address] [place] [address] PCP - General Internal Medicine 06/24/24
== END 2024-12-28 10:57 | disposition home or self-care (01) ==
LOC: HO.HPSW 10:06
PROVIDERS: PCP Internal Medicine; Visit Provider Nurse Practitioner Family
DX: J44.9 Chronic obstructive pulmonary disease, unspecified (principal); R06.09 Other forms of dyspnea
CPT/HCPCS: 99214

== ENCOUNTER → 2024-12-28 10:06 | Outpatient (BNVA) | payer OTHER, SELFPAY | PROVIDERS: PCP Internal Medicine; Visit Provider Nurse Practitioner Family | DX: K21.9 Gastro-esophageal reflux disease without esophagitis (principal); Z87.891 Personal history of nicotine dependence; J44.9 Chronic obstructive pulmonary disease, unspecified; K22.70 Barrett's esophagus without dysplasia | CPT/HCPCS: 99212 ==

== ENCOUNTER 2025-02-09 09:10 | Outpatient (AMB) | payer OTHER, SELFPAY ==
--- NOTE | 2025-02-09 09:36 | MHC.OFFVIS ---
Vital Signs 02/09/25 09:37 Height 5 ft 10 in Weight 152 lb 4 oz BMI 21.8 BP 114/66 Blood Pressure Location Rt brachial Position Sitting Pulse 61 Pulse Source Pulse Oximeter Pulse Oximetry (%) 97 Oxygen Delivery Method Room Air Intake Visit Reasons: COPD Allergies haloperidol (Haldol) Allergy (Unknown, Verified 02/09/25 09:39) Anaphylaxis Wellbutrin Allergy (Unknown, Uncoded 02/09/25 09:39) Hives HPI HPI COPD: Details: Franc is a pleasant 69-year-old male, former 52 pack year smoker, quit in 2019 of underlying moderate to severe COPD, GERD, Mckeon's esophagus and s/p surgical resection of carcinoma of colon in his 30s. Previously patient prescribed Breztri however has been maintained on Trelegy due to better compliance. He continues to report dyspnea on exertion, denies cough or wheezing. He has levalbuterol MDI which he uses twice daily when exerting himself at work otherwise does not use. He is also homeless, currently on a housing wait list and no longer has a nebulizer to use PRN. Offered to send a prescription but patient does not feel he would be able to use it in current living situation. He had a repeat [address] [facility] due to 9mm RUL nodule noted on prior LDCT which has been stable, report not available today. He denies any visits related to urgent care or hospitalizations related to respiratory distress since the last visit. [facility] Medical History (Updated 11/05/23 @ 12:47 by Concepcion Shaw NP) Colon cancer COPD (chronic obstructive pulmonary disease) BPH (benign prostatic hyperplasia) Social History Household Members: None Housing: Other Housing Other:: Renting a room Do you presently have visiting nurse or other home services: No Alcohol intake: never Patient Tobacco Use Status: Former Tobacco user Substance Use Type: Crack/Cocaine Review of Systems Const Denies chills, Denies excessive sweating, Denies fever(s), Denies headache(s) and Denies night sweats Eyes Denies dry eyes, Denies irritation and Denies itchy eyes ENT Reports Normal hearing present, Denies headache(s), Denies nasal congestion, Denies nasal discharge and Denies sore throat Card Denies chest pain, Denies chest pain at rest, Denies chest pain with activity, Denies claudication, Denies leg edema, Reports dyspnea on exertion, Denies orthopnea and Denies paroxysmal nocturnal dyspnea Resp Denies change in phlegm color, Denies chest congestion, Denies cough, Denies hemoptysis, Denies excessive phlegm production, Denies pain on inspiration, Denies pain with cough, Reports dyspnea on exertion, Denies stridor and Denies wheezing Musc Denies myalgias Neuro Reports Normal hearing present and Denies headache(s) Endo Denies excessive sweating Emery/Lymph Denies lymphadenopathy Aller/Immun Denies itchy eyes, Denies seasonal rhinorrhea and Denies wheezing Physical Exam Vital Signs: Last Vital Signs Pulse 61 02/09/25 09:37 BP 114/66 02/09/25 09:37 Pulse Ox 97 02/09/25 09:37 Oxygen Delivery Method Room Air 02/09/25 09:37 BMI result Body Mass Index 21.8 Const General: cooperative, healthy appearing, comfortable, no acute distress, well developed and alert Orientation/consciousness: patient oriented x3 Limitations: no limitations HEENT Head: Yes normal to inspection, Yes normocephalic and Yes atraumatic Ears: hearing grossly normal bilaterally and external ears normal Eyes General: appearance normal, both eyes and all related structures Eyelids: Yes eyelids normal Sclerae: sclerae normal EOM: EOMs intact bilaterally Neck Neck: Yes normal visual inspection and Yes no lymphadenopathy Lymphatic: no lymphadenopathy noted Chest Chest palpation & inspection: normal inspection of the chest Resp Effort & Inspection: normal respiratory effort, able to speak in complete sentences, no audible wheezes, no cough, no stridor, not tachypneic, no tripod positioning and no use of accessory muscles Auscultation: no wheezes and diminished lung sounds Cardio Jugular venous distension: no JVD Rate: regular rate Rhythm: regular rhythm Skin Other: warm, dry General skin exam: no rashes or lesions noted Neuro General: patient oriented x3 Cranial nerves: Yes Normal hearing present Cognition (Neuro): normal cognition Gait exam (Neuro): Normal gait present Extrem General: Yes normal to inspection, Yes capillary refill normal, Yes no clubbing, cyanosis or edema and Yes no pedal edema Psych Appearance: grossly normal and well kempt Speech and movement: Normal speech and movement present and Clear speech present Affect: normal affect Attitude: cooperative Thought process: Normal thought process present Thought content: Normal thought content present Insight: Good insight present (Psych) Judgement: Good judgement present (Psych) Office Procedures 6 Minute Walk Time:: 10:18 SPO2 % at rest: 97 Pulse at rest: 60 SPO2 % during excercise: 94 Pulse during excercise: 104 SPO2 % after excercise: 98 Pulse after excercise: 75 Distance in yards walked: 1,200 Gerald Score: 6 Performance Observations:: Patient walked unassisted on flat ground at a fast pace. Patient was able to walk for the entire 6 minutes maintaining O2 satuation of 94-96% and pulse rate of 104 or less. Patient minimally sob. He reports he becomes very sob when walking upstairs. No supplemental oxygen was required. [address] - 6 Minute Walk Assessment & Plan Assessment & Plan (1) COPD (chronic obstructive pulmonary disease): Code(s): J44.9 - Chronic obstructive pulmonary disease, unspecified Category: Medical (2) Dyspnea on exertion: Code(s): R06.09 - Other forms of dyspnea Category: Medical Plan 6MWT performed today due to persistent dyspnea and patient does not require supplemental oxygen at this time. Currently, Franc reports suboptimal control with the use of Trelegy and levalbuterol MDI. Discussed adding Theophylline to regimen but there are potential drug to drug interactions with antiseizure medications. For now, encouraged patient to increase use of Levalbuterol. All questions were answered and patient in agreement of plan. Will follow up in 4 weeks or sooner if needed. Orders: Orders AMB 6 minute walk 02/09/25 J44.9 - Chronic obstructive pulmonary disease, unspecified Coding Level of Care Code Est Pt Level 4 (56485) Diagnoses COPD (chronic obstructive pulmonary disease) J44.9 Dyspnea on exertion R06.09 CPT Codes Coding ([id number])
[2025-02-09 09:37] VITALS: BP 114/66; PULSE 61; O2SAT 97; BMI 21.8
--- OUTSIDE RECORDS SUMMARY | 2025-02-09 09:52 | XMS_ITS | Clinical Summary ---
Author Organization [facility] Address [address] [place] [address] Care Team Providers Care Pipe Stem Sawyer Name Role Phone Fortunato Zafar Primary Care Provider Allergies Active Allergy Reactions Criticality Noted Date [...] 08/02/2024 Right upper lobe pulmonary nodule 07/08/2024 Encounters Date Type Department Care Team Description 01/13/2025 Telephone [facility] Thoracic Surgery [address] [place] [id number] Anuj Tate MD 01/06/2025 Telephone [facility] Thoracic Surgery [address] [place] [id number] Anuj Tate MD from Last 3 Months Family History Medical History Relation Name Comments [...] Completed 08/26/2023 Insurance [employer] Care Teams Pipe Stem Sawyer Relationship Specialty Start Date End Date Fortunato Zafar [address] [place] [phone] PCP - General Fiber Optic Central Office Installer 01/06/25
[2025-02-09 10:33] VITALS: PULSE 60; O2SAT 97
== END 2025-02-09 10:26 | disposition home or self-care (01) ==
LOC: HO.HPSW 09:11
PROVIDERS: PCP Internal Medicine; Visit Provider Nurse Practitioner Family
DX: J44.9 Chronic obstructive pulmonary disease, unspecified (principal); R06.09 Other forms of dyspnea
CPT/HCPCS: 99214

== ENCOUNTER → 2025-02-09 09:10 | Outpatient (BNVA) | payer OTHER, SELFPAY | PROVIDERS: PCP Internal Medicine; Visit Provider Nurse Practitioner Family | DX: J44.9 Chronic obstructive pulmonary disease, unspecified (principal); R06.09 Other forms of dyspnea | CPT/HCPCS: 94618; 99212 ==

== ENCOUNTER 2025-03-03 09:38 | Outpatient (REF) | payer OTHER, SELFPAY ==
--- OUTSIDE RECORDS SUMMARY | 2025-03-03 11:17 | XMS_ITS | Clinical Summary ---
Author Organization [facility] Address [address] [place] [address] Care Team Providers Care Fire Equipment Inspector Name Role Phone Fortunato Zafar Primary Care Provider [phone] Allergies Active Allergy Reactions Criticality Noted Date [...] Type Department Care Team Description 01/13/2025 Telephone [facility] Thoracic Surgery [address] [place] [id number] Anuj Tate MD 01/06/2025 Telephone [facility] Thoracic Surgery [address] [place] [phone] Anuj Tate MD from Last 3 Months [...] Lung Cancer Screening (Baseline) 02/21/2024 02/20/2023, 11/13/2011 Alcohol/Substance Use Screening 06/23/2024 Depression Screening and Follow-Up 06/23/2024 Health Care Proxy Review 06/23/2024 Social Drivers of Health Pauline ual Screening 06/23/2024 COVID-19 Vaccine (4 - 2024-2 6 season) 2025 06/11/2021, 07/11/2020, 06/20/2020 Influenza Vaccine (#1) 2025 , 03/06/2023, 05/23/2022, Additional history exists Diabetes Screening 08/25/2026 08/26/2023, 0 02/21/2023, 02/20/2023 DTaP,Tdap,and Td Vaccines (4 - Td or Tdap) 04/30/2032 04/30/2022, 07/30/2012, 07/30/2012, Additional history exists Hepatitis B Vaccines Completed 08/20/2018, 08/12/2017, 12/09/2001, Additional history exists Pneumococcal Vaccine: 50+ Years Completed 04/06/2019, 03/13/2017, 11/17/2011, Additional history exists Zoster Vaccines Completed 07/30/2021, 04/25, 03/28/2016 Abdominal Aortic Aneurysm (A AA) Screening Completed 08/26/2023 Insurance [facility] MEDICARE Care Teams Fire Equipment Inspector Relationship Specialty Start Date End Date Fortunato Zafar [address] [place] [phone] PCP - General Hydraulic Pile Hammer Operator 01/06/25
== END 2025-03-03 09:39 | disposition home or self-care (01) ==
LOC: CF 09:38
DX: Z13.89 Encounter for screening for other disorder (principal)

== ENCOUNTER 2025-03-25 10:06 | Outpatient (AMB) | payer OTHER, SELFPAY ==
[2025-03-25 10:23] VITALS: BP 122/68; PULSE 80; O2SAT 98; BMI 22.1
--- NOTE | 2025-03-25 10:23 | A.OFFVIS_ITS ---
Vital Signs 03/25/25 10:23 Height 5 ft 10 in Weight 154 lb 4 oz BMI 22.1 BP 122/68 Blood Pressure Location Rt brachial Position Sitting Pulse 80 Pulse Source Pulse Oximeter Pulse Oximetry (%) 98 Oxygen Delivery Method Room Air Intake Visit Reasons: COPD Allergies haloperidol (Haldol) Allergy (Unknown, Verified 03/25/25 10:25) Anaphylaxis Wellbutrin Allergy (Unknown, Uncoded 03/25/25 10:25) Hives HPI HPI COPD: Details: Franc is a pleasant 70-year-old male, former 52 pack year smoker, quit in 2019 of underlying moderate to severe COPD, GERD, Mckeon's esophagus and s/p surgical resection of carcinoma of colon in his 30s. He reports suboptimal control on Trelegy continuing with dyspnea on exertion. He was seen at [facility] 2 weeks ago for an exacerbation and placed on prednisone with minimal improvement. At this time he reports ongoing productive cough with yellow sputum, si gnificant dyspnea, chest congestion and intermittent wheezing. Unfortunately due to living situation patient does not have a nebulizer and does not feel significant benefit with albuterol MDI. He had repeat six-month chest CT in January for left upper lobe 10.8 mm nodule which had been stable however he did report having a PET scan through [facility] as well as an updated echo, results not available today. Of note, reviewed PFT today from 01/2024 and 04/2024 which revealed 50% decrease in DLCO in a three-month period. [facility] Medical History (Updated 11/05/23 @ 12:47 by Concepcion Shaw NP) Colon cancer COPD (chronic obstructive pulmonary disease) BPH (benign prostatic hyperplasia) Social History Household Members: None Housing: Other Housing Other:: Renting a room Do you presently have visiting nurse or other home services: No Alcohol intake: never Patient Tobacco Use Status: Former Tobacco user Substance Use Type: Crack/Cocaine Review of Systems Const Denies chills, Denies excessive sweating, Denies fever(s), Denies headache(s) and Denies night sweats Eyes Denies dry eyes, Denies irritation and Denies itchy eyes ENT Reports Normal hearing present, Denies headache(s), Denies nasal congestion, Denies nasal discharge and Denies sore throat Card Denies chest pain, Denies chest pain at rest, Denies chest pain with activity, Denies claudication, Denies leg edema, Reports dyspnea on exertion, Denies orthopnea and Denies paroxysmal nocturnal dyspnea Resp Reports change in phlegm color, Reports chest congestion, Reports cough, Denies hemoptysis, Denies excessive phlegm production, Denies pain on inspiration, Denies pain with cough, Reports dyspnea on exertion, Denies stridor and Reports wheezing Musc Denies myalgias Neuro Reports Normal hearing present and Denies headache(s) Endo Denies excessive sweating Emery/Lymph Denies lymphadenopathy Aller/Immun Denies itchy eyes, Denies seasonal rhinorrhea and Reports wheezing Physical Exam Vital Signs: Last Vital Signs Pulse 80 03/25/25 10:23 BP 122/68 03/25/25 10:23 Pulse Ox 98 03/25/25 10:23 Oxygen Delivery Method Room Air 03/25/25 10:23 BMI result Body Mass Index 22.1 Const General: cooperative, healthy appearing, comfortable, no acute distress, well developed and alert Orientation/consciousness: patient oriented x3 Limitations: no limitations HEENT Head: Yes normal to inspection, Yes normocephalic and Yes atraumatic Ears: hearing grossly normal bilaterally and external ears normal Eyes General: appearance normal, both eyes and all related structures Eyelids: Yes eyelids normal Sclerae: sclerae normal EOM: EOMs intact bilaterally Neck Neck: Yes normal visual inspection and Yes no lymphadenopathy Lymphatic: no lymphadenopathy noted Chest Chest palpation & inspection: normal inspection of the chest Resp Effort & Inspection: normal respiratory effort, able to speak in complete sentences, no audible wheezes, no cough, no stridor, not tachypneic, no tripod positioning and no use of accessory muscles Auscultation: no wheezes and diminished lung sounds Cardio Jugular venous distension: no JVD Rate: regular rate Rhythm: regular rhythm Skin Other: warm, dry General skin exam: no rashes or lesions noted Neuro General: patient oriented x3 Cranial nerves: Yes Normal hearing present Cognition (Neuro): normal cognition Gait exam (Neuro): Normal gait present Extrem General: Yes normal to inspection, Yes capillary refill normal, Yes no clubbing, cyanosis or edema and Yes no pedal edema Psych Appearance: grossly normal and well kempt Speech and movement: Normal speech and movement present and Clear speech present Affect: normal affect Attitude: cooperative Thought process: Normal thought process present Thought content: Normal thought content present Insight: Good insight present (Psych) Judgement: Good judgement present (Psych) Office Procedures Nebulizer Treatment Nebulizer Treatment 77254-[id number]/MDI RX initial, or Nebulizer Subsequent Treatment Office Meds ipratropium 0.5 mg-albuterol 3 mg (2.5 mg base)/3 mL nebulization soln Performing Provider: Concepcion Shaw NP Performing Location: [facility] Administered by: Alicia Avila LPN on 03/25/25 11:21 Dose Route Admin Location Dispensed Lot Number Expiration Date [facility] He[employer] Inker Machine 3 mL inhalation 3 mL [id number] 03/22/26 56497-055-98 [employer] Assessment & Plan Assessment & Plan (1) COPD (chronic obstructive pulmonary disease): Code(s): J44.9 - Chronic obstructive pulmonary disease, unspecified Category: Medical (2) Dyspnea on exertion: Code(s): R06.09 - Other forms of dyspnea Category: Medical Plan Will treat current symptoms with doxycycline and hold off on prednisone is no wheezing appreciated today. Nebulized DuoNeb given in office today with improved aeration. Encourage continued use of Trelegy and will trial Combivent to use PRN. Will reach out to obtain records from [facility] including last echo and PET scan. Reviewed prior PFTs which revealed 50% reduction in DLCO and a three-month., will repeat DLCO to assess if there was technical difficulties during last examination versus actual decline. Previously 6MWT performed and patient did not require supplemental oxygen. Previously discussed adding Theophylline to regimen but there are potential drug to drug interactions with antiseizure medications. All questions were answered and patient in agreement of plan. Will follow up in 4-6 weeks or sooner if needed. Orders: Orders AMB Nebulizer Treatment 03/25/25 J44.9 - Chronic obstructive pulmonary disease, unspecified PFT pulmonary function test Today J44.9 - Chronic obstructive pulmonary disease, unspecified Medications: New doxycycline hyclate 100 mg PO BID 14 caps 0RF ipratropium-albuterol 20-100 mcg/actuation (Combivent Respimat) 1 puff inhalation Q6H 4 grams 4RF Coding Level of Care Code Est Pt Level 4 (81770) Diagnoses COPD (chronic obstructive pulmonary disease) J44.9 Dyspnea on exertion R06.09 CPT Codes Nebulizer Treatment - Nebulizer Treatment, initial or subsequent: 63233- Nebulizer/MDI RX initial, or Nebulizer Subsequent Treatment ([id number])
--- OUTSIDE RECORDS SUMMARY | 2025-03-25 10:56 | XMS_ITS | Clinical Summary ---
Author Organization [facility] Address [address] [place] [address] Care Team Providers Care Inspector Screen Printing Name Role Phone Fortunato Zafar Primary Care [...] Type Department Care Team Description 01/13/2025 Telephone [facility] Thoracic Surgery [address] [place] [id number] Anuj Tate MD 01/06/2025 Telephone [facility] Thoracic Surgery [address] [place] [phone] Anuj Tate MD from Last 3 Months [...] Aortic Aneurysm (A AA) Screening Completed 08/26/2023 Diabetes Screening Discontinued 08/26/2023, 0 02/21/2023, 02/20/2023 Insurance [facility] ADMIN MEDICARE Care Teams Inspector Screen Printing Relationship Specialty Start Date End Date Fortunato Zafar [address] [place] [id number] PCP - General Procedures Rn 01/06/25
== END 2025-03-25 11:27 | disposition home or self-care (01) ==
LOC: HO.HPSW 10:06
PROVIDERS: PCP Internal Medicine; Referring Provider Nurse Practitioner Family; Visit Provider Nurse Practitioner Family
DX: J44.9 Chronic obstructive pulmonary disease, unspecified (principal)
CPT/HCPCS: 99214

== ENCOUNTER → 2025-03-25 10:06 | Outpatient (BNVA) | payer OTHER, SELFPAY | PROVIDERS: PCP Internal Medicine; Visit Provider Nurse Practitioner Family | DX: J44.9 Chronic obstructive pulmonary disease, unspecified (principal); R06.09 Other forms of dyspnea | CPT/HCPCS: 94640; 99212 ==

== ENCOUNTER 2025-05-06 09:48 | Outpatient (AMB) | payer OTHER, SELFPAY ==
[2025-05-06 09:52] VITALS: BP 120/66; PULSE 88; O2SAT 97; BMI 22.2
--- NOTE | 2025-05-06 09:52 | A.OFFVIS_ITS ---
Vital Signs 05/06/25 09:52 Height 5 ft 10 in Weight 155 lb BMI 22.2 BP 120/66 Blood Pressure Location Rt brachial Position Sitting Pulse 88 Pulse Source Pulse Oximeter Pulse Oximetry (%) 97 Oxygen Delivery Method Room Air Intake Visit Reasons: COPD Allergies haloperidol (Haldol) Allergy (Unknown, Verified 05/06/25 09:54) Anaphylaxis Wellbutrin Allergy (Unknown, Uncoded 05/06/25 09:54) Hives HPI HPI COPD: Details: Franc is a pleasant 70-year-old male, former 52 pack year smoker, quit in 2019 of underlying moderate to severe COPD, GERD, Mckeon's esophagus and s/p surgical resection of colon carcinoma in his 30s. He continues to report suboptimal control on Trelegy continuing with dyspnea on exertion, using Combivent PRN. Today he reports that PCP has placed patient on prednisone as needed frequently with improvement however once discontinues symptoms recur. He has also been evaluated at [facility] approximately 3 weeks ago for an exacerbation receiving antibiotics as well as prednisone. PCP and ED records not available today. At this time he reports ongoing productive cough with yellow sputum, significant dyspnea, chest congestion and intermittent wheezing. Denies fevers or chills. He does resides at a long term reporting respiratory symptoms tend to worsen while there and recently multiple sick contacts. Unfortunately due to living situation patient does not have a nebulizer which we had previously discussed adding to regimen. He had repeat six-month chest CT in January for left upper lobe 10.8 mm nodule which had been stable however he did report having a PET scan through [facility] as well as an updated echo, results not available today. Of note, reviewed PFT from 01/2024 and 04/2024 which revealed 50% decrease in DLCO in a three-month period with upcoming PFT scheduled through [facility] in May. [facility] Medical History (Updated 05/06/25 @ 10:13 by Concepcion Shaw NP) Colon cancer COPD (chronic obstructive pulmonary disease) BPH (benign prostatic hyperplasia) Social History Household Members: None Housing: Other Housing Other:: Renting a room Do you presently have visiting nurse or other home services: No Alcohol intake: never Patient Tobacco Use Status: Former Tobacco user Substance Use Type: Crack/Cocaine Review of Systems Const Denies chills, Denies excessive sweating, Denies fever(s), Denies headache(s) and Denies night sweats Eyes Denies dry eyes, Denies irritation and Denies itchy eyes ENT Reports Normal hearing present, Denies headache(s), Denies nasal congestion, Denies nasal discharge and Denies sore throat Card Denies chest pain, Denies chest pain at rest, Denies chest pain with activity, Denies claudication, Denies leg edema, Reports dyspnea on exertion, Denies orthopnea and Denies paroxysmal nocturnal dyspnea Resp Reports change in phlegm color, Reports chest congestion, Reports cough, Denies hemoptysis, Denies excessive phlegm production, Denies pain on inspiration, Denies pain with cough, Reports dyspnea on exertion, Denies stridor and Reports wheezing Musc Denies myalgias Neuro Reports Normal hearing present and Denies headache(s) Endo Denies excessive sweating Emery/Lymph Denies lymphadenopathy Aller/Immun Denies itchy eyes, Denies seasonal rhinorrhea and Reports wheezing Physical Exam Vital Signs: Last Vital Signs Pulse 88 05/06/25 09:52 BP 120/66 05/06/25 09:52 Pulse Ox 97 05/06/25 09:52 Oxygen Delivery Method Room Air 05/06/25 09:52 BMI result Body Mass Index 22.2 Const General: cooperative, healthy appearing, comfortable, no acute distress, well developed and alert Orientation/consciousness: patient oriented x3 Limitations: no limitations HEENT Head: Yes normal to inspection, Yes normocephalic and Yes atraumatic Ears: hearing grossly normal bilaterally and external ears normal Eyes General: appearance normal, both eyes and all related structures Eyelids: Yes eyelids normal Sclerae: sclerae normal EOM: EOMs intact bilaterally Neck Neck: Yes normal visual inspection and Yes no lymphadenopathy Lymphatic: no lymphadenopathy noted Chest Chest palpation & inspection: normal inspection of the chest Resp Effort & Inspection: normal respiratory effort, able to speak in complete sentences, no audible wheezes, no cough, no stridor, not tachypneic, no tripod positioning and no use of accessory muscles Auscultation: no wheezes and diminished lung sounds Cardio Jugular venous distension: no JVD Rate: regular rate Rhythm: regular rhythm Skin Other: warm, dry General skin exam: no rashes or lesions noted Neuro General: patient oriented x3 Cranial nerves: Yes Normal hearing present Cognition (Neuro): normal cognition Gait exam (Neuro): Normal gait present Extrem General: Yes normal to inspection, Yes capillary refill normal, Yes no clubbing, cyanosis or edema and Yes no pedal edema Psych Appearance: grossly normal and well kempt Speech and movement: Normal speech and movement present and Clear speech present Affect: normal affect Attitude: cooperative Thought process: Normal thought process present Thought content: Normal thought content present Insight: Good insight present (Psych) Judgement: Good judgement present (Psych) Office Procedures Nebulizer Treatment Nebulizer Treatment 63011-Ntuawelvx/MDI RX initial, or Nebulizer Subsequent Treatment Office Meds ipratropium 0.5 mg-albuterol 3 mg (2.5 mg base)/3 mL nebulization soln Performing Provider: Concepcion Shaw NP Performing Location: [facility] Administered by: Alicia Avila LPN on 05/06/25 10:26 Dose Route Admin Location Dispensed Lot Number Expiration Date [facility] Client Support Analyst 3 mL inhalation 3 mL [id number] 03/22/26 42697-192-67 [employer] Assessment & Plan Assessment & Plan (1) COPD (chronic obstructive pulmonary disease): Code(s): J44.9 - Chronic obstructive pulmonary disease, unspecified Category: Medical (2) Dyspnea on exertion: Code(s): R06.09 - Other forms of dyspnea Category: Medical Plan Will treat current symptoms with Augmentin and hold off on prednisone is no wheezing appreciated today. He is aware to call if symptoms do not improve. Nebulized DuoNeb given in office today with improved aeration. Encouraged continued use of Trelegy and Combivent to use PRN. Will again reach out to obtain records from [facility] including last echo and PET scan, the last PET dated 06/15. Reviewed prior PFTs which revealed 50% reduction in DLCO and a three-month period, order placed for repeat PFT to assess if there was technical difficulties during last examination versus actual decline which is scheduled in May. Previously 6MWT performed and patient did not require supplemental oxygen. Previously discussed adding Theophylline to regimen but there are potential drug to drug interactions with antiseizure medications. Will assess for eosinophilic/allergic component and discussed importance of being off of prednisone for this unless symptoms warrant. All questions were answered and patient in agreement of plan. Will follow up in 4-6 weeks or sooner if needed. Orders: Orders Immunoglobulin E 05/06/25 Z91.09 - Other allergy status, other than to drugs and biological substances Complete Blood Count Auto Diff 05/06/25 R06.00 - Dyspnea, unspecified Resp Allergy Profile Region I 05/06/25 Z91.09 - Other allergy status, other than to drugs and biological substances AMB Nebulizer Treatment 05/06/25 J44.9 - Chronic obstructive pulmonary disease, unspecified Medications: New amoxicillin-pot clavulanate 875-125 mg 1 tab PO Q12H 20 tabs 0RF Discontinued [id number]-qnbfpmwd-bzuziolvpf 160-9-4.8 mcg/actuation (Breztri Aerosphere) Discontinued Reason: Patient Completed Course 2 inhalations inhalation BID 10.7 grams 6RF Coding Level of Care Code Est Pt Level 4 (68232) Diagnoses COPD (chronic obstructive pulmonary disease) J44.9 Dyspnea on exertion R06.09 CPT Codes Nebulizer Treatment - Nebulizer Treatment, initial or subsequent: 42061- Nebulizer/MDI RX initial, or Nebulizer Subsequent Treatment ([id number])
--- OUTSIDE RECORDS SUMMARY | 2025-05-06 11:02 | XMS_ITS | Clinical Summary ---
Author Organization [facility] Address [address] [place] [address] Care Team Providers Care Ribbon Hand Name Role Phone Fortunato Zafar Primary Care [...] Years Used Date Smoking Tobacco: Former Cigarettes 0 Q uit: 2019 Smokeless Tobacco: Never Alcohol [...] Screening 06/23/2024 Depression Screening and Follow-Up 06/23/2024 Fall Risk Screening 06/23/2024 Health Care Proxy Review 06/23/2024 Social [...] Screening Discontinued 08/26/2023, 0 02/21/2023, 02/20/2023 Insurance [employer] Care Teams Ribbon Hand Relationship Specialty Start Date End Date Fortunato Zafar [address] [place] [id number] 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
== END 2025-05-06 10:46 | disposition home or self-care (01) ==
LOC: HO.HPSW 09:49
PROVIDERS: PCP Internal Medicine; Referring Provider Nurse Practitioner Family; Visit Provider Nurse Practitioner Family
DX: J44.9 Chronic obstructive pulmonary disease, unspecified (principal)

== ENCOUNTER → 2025-05-06 09:48 | Outpatient (BNVA) | payer OTHER, SELFPAY | PROVIDERS: PCP Internal Medicine; Visit Provider Nurse Practitioner Family | DX: J44.9 Chronic obstructive pulmonary disease, unspecified (principal); R06.09 Other forms of dyspnea; Z87.891 Personal history of nicotine dependence; Z59.01 Sheltered homelessness | CPT/HCPCS: 94640 ==

== ENCOUNTER 2025-05-23 10:06 | Outpatient (REF) | payer OTHER, SELFPAY ==
[2025-05-23 11:40] LABS: Hematocrit 37.7 % (42.0-52.0); Hemoglobin 12.6 g/dl (14.0-18.0); Imm Gran Abs Auto 0.04 X10*3/uL (0.00-0.03); Imm Gran Pct Auto 0.5 % (0.0-0.4); Lymphocytes Absolute Auto 2.6 X10*3/uL (1.2-4.9); MANUAL DIFF FLAG NO; Mean Corpuscular HGB Conc 33.4 g/dl (31.0-36.0); Mean Corpuscular Hemoglobin 30.8 pg (27.0-33.0); Mean Corpuscular Volume 92.2 fL (80.0-98.0); NRBC Abs Auto 0.000 X10*3/uL (0.0-0.012); NRBC Pct Auto 0.0 /100WBC (0.0-0.2); Platelet Count 192 X10*3/uL (160-400); Red Blood Count 4.09 X10*6/uL (4.60-5.80); White Blood Count 8.4 X10*3/uL (4.8-10.8)
--- OUTSIDE RECORDS SUMMARY | 2025-05-23 12:21 | XMS_ITS | Clinical Summary ---
Author Organization [facility] Address [address] [place] [address] Care Team Providers Care Bit Grinder Name Role Phone Fortunato Zafar Primary Care [...] old a nd patients) (1 - Risk 50-74 years 1-dose series) 2004 Alcohol/Substance Use Screening 06/23/2024 Depression Screening and Follow-Up 06/23/2024 Fall Risk Screening 06/23/2024 Health Care Proxy Review 06/23/2024 Social Drivers of Health Pauline ual Screening 06/23/2024 Influenza Vaccine (#1) 2025 , 03/06/2023, 05/23/2022, Additional history exists COVID-19 Vaccine (4 - 2024-2 6 season) 2025 06/11/2021, 07/11/2020, 06/20/2020 DTaP,Tdap,and Td Vaccines (4 - Td or Tdap) 04/30/2032 04/30/2022, 07/30/2012, 07/30/2012, Additional history exists Hepatitis B Vaccines Completed 08/20/2018, 08/12/2017, 12/09/2001, Additional history exists Pneumococcal Vaccine: 50+ Years Completed 04/06/2019, 03/13/2017, 11/17/2011, Additional history exists Zoster Vaccines Completed 07/30/2021, 04/25, 03/28/2016 Abdominal Aortic Aneurysm (A AA) Screening Completed 08/26/2023 Diabetes Screening Discontinued 08/26/2023, 0 02/21/2023, 02/20/2023 Insurance [employer] Care Teams Bit Grinder Relationship Specialty Start Date End Date Fortunato Zafar [address] [place] [id number] 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
== END 2025-05-23 10:07 | disposition home or self-care (01) ==
LOC: HO.WFDLDS 10:06
PROVIDERS: Visit Provider Nurse Practitioner Family
DX: R06.00 Dyspnea, unspecified (principal); Z91.09 Other allergy status, other than to drugs and biological substances
CPT/HCPCS: 36415; 82785; 85025; 86003

== ENCOUNTER 2025-06-03 10:37 | Outpatient (AMB) | payer OTHER, SELFPAY ==
[2025-06-03 10:42] VITALS: BP 122/68; PULSE 84; O2SAT 98; BMI 22.2
--- NOTE | 2025-06-03 10:42 | A.OFFVIS_ITS ---
Vital Signs 06/03/25 10:42 Height 5 ft 10 in Weight 154 lb 8 oz BMI 22.2 BP 122/68 Blood Pressure Location Rt brachial Position Sitting Pulse 84 Pulse Source Pulse Oximeter Pulse Oximetry (%) 98 Oxygen Delivery Method Room Air Intake Visit Reasons: COPD Allergies haloperidol (Haldol) Allergy (Unknown, Verified 06/03/25 10:45) Anaphylaxis Wellbutrin Allergy (Unknown, Uncoded 06/03/25 10:45) Hives HPI HPI COPD: Details: Franc is a pleasant 70-year-old male, former 52 pack year smoker, quit in 2019 of underlying moderate to severe COPD, GERD, Mckeon's esophagus and s/p surgical resection of colon carcinoma in his 30s. He is on Trelegy and continues to use his Combivent rescue inhaler frequently, at least three times a day, which provides some relief. He reports frequent flare-ups, which he believes are triggered by sick contacts and viral infections, currently living in a care home. He notes his symptoms improved after a course of Augmentin but worsened again about three days ago in which he started prednisone at 40 mg, currently on 30mg. He currently reports chest congestion, productive cough occasionally with yellow mucus, dyspnea and wheezing. Cold weather also exacerbates his breathing difficulties. He has not required any emergency room or urgent care visits since his last appointment four weeks ago. Pertinent to vaccinations, he is unable to receive any more COVID-19 vaccines due to a previous adverse reaction requiring an emergency room visit. He is up to date with his influenza vaccination and has received pneumonia vaccines within the last couple of years. Unfortunately due to living situation patient does not have a nebulizer which we had previously discussed adding to regimen. He had repeat six-month chest CT in January for left upper lobe 10.8 mm nodule which had been stable however he did report having a PET scan through [facility] 06/15 with minimal FDG activity. Of note, reviewed PFT from 01/2024 and 04/2024 which revealed 50% decrease in DLCO in a three-month period with upcoming PFT scheduled through [facility] in June. Pulmonology History - Diagnosis of Chronic Obstructive Pulmonary Disease with a chronic bronchitis phenotype and frequent exacerbations. - Persistent symptoms include chronic cough and constant dyspnea. - Currently using Trelegy daily and a Combivent rescue inhaler approximately three times per day. - Requires frequent courses of oral prednisone for flare-ups. - Exacerbations are triggered by viral infections and cold weather. - Previous blood work showed no significant eosinophilia, making an allergic component less likely. - No emergency department visits or hospitalizations in the past four weeks. [facility] Medical History (Updated 06/03/25 @ 11:10 by Concepcion Shaw NP) Colon cancer COPD (chronic obstructive pulmonary disease) BPH (benign prostatic hyperplasia) Social History Household Members: None Housing: Other Housing Other:: Renting a room Do you presently have visiting nurse or other home services: No Alcohol intake: never Patient Tobacco Use Status: Former Tobacco user Substance Use Type: Crack/Cocaine Review of Systems Const Denies chills, Denies excessive sweating, Denies fever(s), Denies headache(s) and Denies night sweats Eyes Denies dry eyes, Denies irritation and Denies itchy eyes ENT Reports Normal hearing present, Denies headache(s), Denies nasal congestion, Denies nasal discharge and Denies sore throat Card Denies chest pain, Denies chest pain at rest, Denies chest pain with activity, Denies claudication, Denies leg edema, Reports dyspnea on exertion, Denies orthopnea and Denies paroxysmal nocturnal dyspnea Resp Reports change in phlegm color, Reports chest congestion, Reports cough, Denies hemoptysis, Denies excessive phlegm production, Denies pain on inspiration, Denies pain with cough, Reports dyspnea on exertion, Denies stridor and Reports wheezing Musc Denies myalgias Neuro Reports Normal hearing present and Denies headache(s) Endo Denies excessive sweating Emery/Lymph Denies lymphadenopathy Aller/Immun Denies itchy eyes, Denies seasonal rhinorrhea and Reports wheezing Physical Exam Exam Exam: Physical Exam - Respiratory: Auscultation of the lungs reveals wheezing and scattered mucus. Vital Signs: Last Vital Signs Pulse 84 06/03/25 10:42 BP 122/68 06/03/25 10:42 Pulse Ox 98 06/03/25 10:42 Oxygen Delivery Method Room Air 06/03/25 10:42 BMI result Body Mass Index 22.2 Const General: cooperative, healthy appearing, comfortable, no acute distress, well developed and alert Orientation/consciousness: patient oriented x3 Limitations: no limitations HEENT Head: Yes normal to inspection, Yes normocephalic and Yes atraumatic Ears: hearing grossly normal bilaterally and external ears normal Eyes General: appearance normal, both eyes and all related structures Eyelids: Yes eyelids normal Sclerae: sclerae normal EOM: EOMs intact bilaterally Neck Neck: Yes normal visual inspection and Yes no lymphadenopathy Lymphatic: no lymphadenopathy noted Chest Chest palpation & inspection: normal inspection of the chest Resp Effort & Inspection: normal respiratory effort, able to speak in complete sentences, no audible wheezes, no stridor, not tachypneic, no tripod positioning and no use of accessory muscles Auscultation: rhonchi, wheezes and diminished lung sounds Cardio Jugular venous distension: no JVD Rate: regular rate Rhythm: regular rhythm Skin Other: warm, dry General skin exam: no rashes or lesions noted Neuro General: patient oriented x3 Cranial nerves: Yes Normal hearing present Cognition (Neuro): normal cognition Gait exam (Neuro): Normal gait present Extrem General: Yes normal to inspection, Yes capillary refill normal, Yes no clubbing, cyanosis or edema and Yes no pedal edema Psych Appearance: grossly normal and well kempt Speech and movement: Normal speech and movement present and Clear speech present Affect: normal affect Attitude: cooperative Thought process: Normal thought process present Thought content: Normal thought content present Insight: Good insight present (Psych) Judgement: Good judgement present (Psych) Assessment & Plan Assessment & Plan (1) COPD (chronic obstructive pulmonary disease): Code(s): J44.9 - Chronic obstructive pulmonary disease, unspecified Category: Medical (2) Dyspnea on exertion: Code(s): R06.09 - Other forms of dyspnea Category: Medical Plan Discussed with the patient that his persistent symptoms and frequent flare-ups are characteristic of the chronic bronchitis component of his COPD, making him susceptible to viral infections. Explained the plan to manage his current exacerbation with a 5-day course of azithromycin and a short course of prednisone. For long-term management, we discussed Daliresp, to help reduce the frequency of his exacerbations. Counseled him on the potential for GI side effects and explained we would start with a lower dose for four weeks to monitor for tolerance. We also discussed the possibility of an underlying immune system issue due to his recurrent infections. Informed him that we will be ordering blood work to evaluate his immune function, as well as kidney and liver function. Instructed him to call the office if he experiences any adverse effects from the new medication or when he is due for a refill for a higher dose if he is able to tolerate. All questions were answered and patient is in agreement of plan. Will follow up in 4-6 weeks or sooner if needed. Patient Instructions - Take the Azithromycin antibiotic for 5 days as prescribed: take two pills on the first day, then one pill each day for the next four days. - Continue taking your prednisone for at least the next 5 days to help with the current flare-up. - After you finish the 5-day antibiotic course, start taking the new pill called Daliresp. Take one pill each day. - Be aware that Daliresp may cause an upset stomach, like nausea or diarrhea. We are starting you on a low dose to help prevent this. - Please go to the lab to get the blood work we ordered to check your immune system, kidney, and liver function. - Continue to use your Trelegy inhaler every day. - Consider wearing a scarf over your mouth and nose when out in the cold weather to help with your breathing. - Call our office sooner if you are having any problems, or call when your 4- week supply of Daliresp is due for a refill. - We will see you back in the office in 4 to 6 weeks. Patient was informed and verbally consented to the use of an ambient scribe. Orders: Orders Immunoglobulins,IgG IgA IgM Today J18.9 - Pneumonia, unspecified organism Liver Panel Today Z01.818 - Encounter for other preprocedural examination Blood Urea Nitrogen Today Z01.818 - Encounter for other preprocedural examination Creatinine Today Z01.818 - Encounter for other preprocedural examination Immunoglobulin G Subclasses Today J18.9 - Pneumonia, unspecified organism Medications: New prednisone 40 mg (2 x 20 mg) PO DAILY 10 tabs 0RF roflumilast (Daliresp) 250 mcg PO DAILY 28 tabs 0RF 4 weeks azithromycin For 250 mg dose pack: take 500 mg today (day 1), then 250 mg for 4 days (days 2-5) PO 6 tabs 0RF Coding Level of Care Code Est Pt Level 4 (94507) Add On Problem Visit Only Diagnoses COPD (chronic obstructive pulmonary disease) J44.9 Dyspnea on exertion R06.09
== END 2025-06-03 11:18 | disposition home or self-care (01) ==
LOC: HO.HPSW 10:37
PROVIDERS: PCP Internal Medicine; Visit Provider Nurse Practitioner Family
DX: J44.9 Chronic obstructive pulmonary disease, unspecified (principal); R06.09 Other forms of dyspnea
CPT/HCPCS: 99214; G2211

== ENCOUNTER 2025-06-03 10:37 | Outpatient (REF) | payer OTHER, SELFPAY ==
[2025-06-03 15:29] LABS: Alanine Aminotransferase 18 U/L (0-40); Albumin Level 4.8 g/dL (3.5-5.0); Alkaline Phosphatase 87 U/L (39-117); Aspartate Amino Transferase 19 U/L (5-37); Blood Urea Nitrogen 13 mg/dL (9-16); Estimated Glomerular Filt Rate > 60; Total Protein 6.6 g/dL (6.5-8.0)
[2025-06-06 17:03] LABS: Immunoglobulin G Subclass 1 405 mg/dL (382-929); Immunoglobulin G Subclass 2 55 mg/dL (241-700); Immunoglobulin G Subclass 3 25 mg/dL (22-178); Immunoglobulin G Subclass 4 2.9 mg/dL (4-86); Immunoglobulin G Total 584 mg/dL (600-1540)
== END 2025-06-03 10:38 | disposition home or self-care (01) ==
LOC: HO.WFDLDS 10:37
PROVIDERS: PCP Internal Medicine; Visit Provider Nurse Practitioner Family
DX: J44.9 Chronic obstructive pulmonary disease, unspecified (principal); J18.9 Pneumonia, unspecified organism; R06.00 Dyspnea, unspecified; Z91.09 Other allergy status, other than to drugs and biological substances; Z01.818 Encounter for other preprocedural examination; Z87.891 Personal history of nicotine dependence
CPT/HCPCS: 36415; 80076; 82565; 82784; 84520

== ENCOUNTER 2025-06-10 20:27 | Observation (INO) | payer OTHER, SELFPAY ==
--- NOTE | ~2025-06-10 | CT_ITS ---
CLINICAL HISTORY: SOB; Cough; ? PE CT angiography chest using contrast. 3-D postprocessing Comparison: CR - XR CHEST 2V - 06/11/25 00:06 EST Findings: No pulmonary embolism. No thoracic aorta aneurysm. Heart size within normal limits. RV/LV ratio normal. Coronary artery calcifications are present. No focal pulmonary consolidation, pneumothorax, or pleural effusion. 6 mm right upper lobe pulmonary nodule present on axial image number 50 of series 10. 6 mm left upper lobe pulmonary nodule on image number 25 of series 10. Centrilobular emphysema identified throughout the bilateral lungs. Scattered mucous plugging identified at the right lower lobe. Indeterminate 1.3 cm left adrenal nodule. No acute fractures. Impression: Negative for pulmonary embolism. Emphysema present with scattered mucous plugging at the right lower lobe. No focal pulmonary consolidation. 6 mm nodules present at the bilateral upper lobes. Recommend 3-[address] follow-up followed by an optional 18-[address] follow-up regardless of patient risk according to Fleischner criteria. This document has been electronically signed by: Ulysses Ramirez MD on 06/11/2025 02:41:44
--- NOTE | ~2025-06-10 | XR_ITS ---
CLINICAL HISTORY: Cough; Leukocytosis 2 view chest x-ray Comparison: 08/10/2023 Findings: Lungs are clear without acute infiltrates. Right upper lobe calcified granuloma. No pneumothorax. Heart size normal. No acute bony abnormalities. Old rib fractures noted. Impression: No acute processes This document has been electronically signed by: Esau Christensen MD on 06/11/2025 00:24:55
[2025-06-10 20:35] VITALS: BP 142/82; BP 165/93; PULSE 84; PULSE 92; RESP 18; TEMP 35.9; O2SAT 97; O2SAT 98; BMI 26.0
--- OUTSIDE RECORDS SUMMARY | 2025-06-10 21:06 | XMS_ITS | Clinical Summary ---
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
[2025-06-10 22:05] LABS: MANUAL DIFF FLAG NO
[2025-06-10 22:06] LABS: Hematocrit 42.6 % (42.0-52.0); Hemoglobin 14.2 g/dl (14.0-18.0); Imm Gran Abs Auto 0.08 X10*3/uL (0.00-0.03); Imm Gran Pct Auto 0.5 % (0.0-0.4); Lymphocytes Absolute Auto 2.0 X10*3/uL (1.2-4.9); Mean Corpuscular HGB Conc 33.3 g/dl (31.0-36.0); Mean Corpuscular Hemoglobin 30.9 pg (27.0-33.0); Mean Corpuscular Volume 92.8 fL (80.0-98.0); NRBC Abs Auto 0.000 X10*3/uL (0.0-0.012); NRBC Pct Auto 0.0 /100WBC (0.0-0.2); Platelet Count 206 X10*3/uL (160-400); Red Blood Count 4.59 X10*6/uL (4.60-5.80); White Blood Count 15.8 X10*3/uL (4.8-10.8)
[2025-06-10 22:26] LABS: Alanine Aminotransferase 19 U/L (0-40); Albumin Level 5.0 g/dL (3.5-5.0); Alkaline Phosphatase 92 U/L (39-117); Anion Gap 16 (12-20); Aspartate Amino Transferase 34 U/L (5-37); Blood Urea Nitrogen 12 mg/dL (9-16); Calcium 9.5 mg/dL (8.4-10.2); Carbon Dioxide 24 mmol/L (22-29); Chloride 106 mmol/L (96-108); Creatinine Clr Calc Pharmacy 93.1; Estimated Glomerular Filt Rate > 60; Potassium 4.4 mmol/L (3.3-5.1); Sodium 142 mmol/L (135-145); Total Protein 7.2 g/dL (6.5-8.0)
--- NOTE | 2025-06-10 23:29 | ED_ITS ---
HPI - Alcohol General Chief Complaint: ETOH/Substance Use Stated Complaint: Crack cocaine use Time Seen by Provider: 06/10/25 23:28 Source: patient and EMS Mode of arrival: EMS Limitations: no limitations History of Present Illness ED Provider: Will GIFFORD HPI narrative: The patient is a 70-year-old male who presents to the Emergency Department stating that earlier today he smoked an unknown substance from a glass pipe provided by ?a random person,? which he was told was cocaine. He denies regular or recent drug use aside from an episode of cocaine use eight years ago that produced similar symptoms of feeling ?lousy.? He denies alcohol intake tonight. Since smoking the substance he feels dizzy and notes increasing shortness of breath. Patient reports a history of COPD, reports he has been suffering from a chronic cough for the past 3 months, and reports his breathing has been gradually worsening. He admits has not been drinking fluids today. He denies abdominal pain, nausea, vomiting, diarrhea. He reports a chronic cough for approximately three months. He expresses regret about today?s drug use and states he is interested in rehabilitation. Related Data Home Medications ?Medication ?Instructions ?Recorded ?Confirmed ferrous gluconate 324 mg (38 mg 324 mg PO DAILY 08/10/23 iron) tablet levalbuterol tartrate 45 2 inh inhalation QID PRN Jeana rtness 08/10/23 08/10/23 mcg/actuation aerosol inhaler Of Breath Or Wheezing omeprazole 20 mg capsule,delayed 20 mg PO DAILY release oxcarbazepine 600 mg tablet 600 mg PO BID 02/10/25 fluticasone fur. 200 mcg-umeclid 1 inh inhalation NICOLE Y 05/06/25 62.5 mcg-vilant 25 mcg inhalat.powder (Trelegy Ellipta) zolpidem 5 mg tablet 5 mg PO BEDTIME 05/06/25 prazosin 2 mg capsule 2 mg PO BEDTIME 06/03/25 Previous Rx's ?Medication ?Instructions ?Recorded ipratropium 20 mcg-albuterol 100 1 puff inhalation Q6H #4 grams 03/25/25 mcg/actuation mist for inhalation (Combivent Respimat) azithromycin 250 mg tablet See Rx Instructions PO .COM PLEX #6 06/03/25 tabs prednisone 20 mg tablet 40 mg (2 x 20 mg) PO DAILY # 10 tabs 06/03/25 roflumilast 250 mcg tablet 250 mcg PO DAILY 4 weeks #2 8 tabs 06/09/25 (Daliresp) Allergies Allergy/AdvReac Type Severity Reaction Status Date / Time haloperidol (Haldol) Allergy Unknown Anaphylaxis Verified 06/10/25 20:43 Wellbutrin Allergy Unknown Hives Uncoded 06/03/25 10:45 Review of Systems 2 Review of Systems: Yes all other systems are reviewed and are negative PMFSH Past Medical History Medical History (Updated 06/11/25 @ 05:47 by Will Fischer PA-C) Colon cancer COPD (chronic obstructive pulmonary disease) BPH (benign prostatic hyperplasia) Social History Social History Household Members: None Housing: Other Housing Other:: Renting a room Do you presently have visiting nurse or other home services: No Alcohol intake: never Patient Tobacco Use Status: Former Tobacco user Smoked in Last 30 Days: No Substance Use Type: Crack/Cocaine Substance Use Frequency: Occasionally Advance Directives: No Advance Directives Information Provided: No Physical Exam ED Vital Signs: Vital Signs - 24 hr 06/10/25 20:35 06/11/25 01:20 06/11/25 01:30 Temperature 96.7 F L Pulse Rate 84 86 80 Respiratory Rate 18 18 22 H Blood Pressure 142/82 H 143/80 H Pulse Oximetry 97 100 Oxygen Delivery Method Room Air 06/11/25 03:52 Temperature Pulse Rate 87 Respiratory Rate 22 H Blood Pressure 137/63 Pulse Oximetry 92 Oxygen Delivery Method Room Air BMI result Body Mass Index 26.0 CONSTITUTIONAL: The patient appears borderline cachectic, clinically dehydrated, non-toxic, well nourished and in no acute distress. Vital signs as documented. HEAD: Atraumatic, normocephalic. EYES: EOMs grossly intact, pupils equal, conjunctiva clear, no exudate. ENT: Nares patent, no discharge. Airway patent, no audible stridor, visible mucosa is pink but dry and cracking without noted lesions. NECK: Trachea is midline, no obvious masses or gross abnormalities. CHEST: Symmetric movement, normal appearance. LUNGS: LS present but mildly diminished throughout, no w/r/r. Pursed lip breathing with increased respiratory rate noted. No accessory muscle use. CARDIAC: Regular Rhythm, S1/S2 appreciated, no murmurs, rubs or gallops. ABDOMEN: Abdomen soft and non-tender x4 quadrants, no palpable masses or organomegaly. : Deferred. EXTREMITIES: Normal tone, moves all extremities spontaneously without reported pain. No obvious acute injury or deformity noted. NEURO: Alert and oriented x3, CN II-XII appear grossly intact. Cerebellar Functioning grossly intact. No obvious sensory or motor deficits. Speech clear and appropriate. PSYCH: normal affect, appropriate eye contact, fluid speech, with appropriate response to questioning. No reported suicidality or homicidality. SKIN: Warm, dry, color appropriate, normal turgor. No rashes noted. Medical Decision Making Medical Decision Making MDM Narrative: 12:58 AM 06/11/2025 (Doni GIFFORD): The patient is a 70-year-old male who presents to the Emergency Department stating that earlier today he smoked an unknown substance from a glass pipe provided by ?a random person,? which he was told was cocaine. He denies regular or recent drug use aside from an episode of cocaine use eight years ago that produced similar symptoms of feeling ?lousy.? He denies alcohol intake tonight. Since smoking the substance he feels dizzy and notes increasing shortness of breath. Patient reports a history of COPD, reports he has been suffering from a chronic cough for the past 3 months, and reports his breathing has been gradually worsening. He admits has not been drinking fluids today. He denies abdominal pain, nausea, vomiting, diarrhea. He reports a chronic cough for approximately three months. He expresses regret about today?s drug use and states he is interested in rehabilitation. On exam patient has markedly dry mucous membranes with cracking of the lips, concerning for dehydration. The patient has pursed lip breathing, with mildly increased respiratory rate, lung sounds are diminished throughout, without overt wheezing. Patient has a dry cough throughout exam. The patient's abdomen is nontender, no lower extremity edema. Laboratory evaluation reveals leukocytosis of 15.8 without anemia, electrolyte abnormality, or LEODAN. The patient's LFTs are unremarkable. The patient's urinalysis shows no evidence of acute infection. UDS is positive for opiates, fentanyl, and cocaine, raising concern that the drug consumes/smoked was cocaine laced with fentanyl resulting in the patient's subjective symptoms. The patient was sent for a chest x-ray which shows no focal consolidation or other acute process. Due to the patient's level of respiratory effort and leukocytosis, we will obtain CTA of the chest to evaluate for PE or pneumonia not visualized on x-ray. Due to the shortness of breath and positive cocaine on UDS, in this 70-year-old male, we will add on EKG and troponin. Patient will also be treated with Solu-Medrol and bronchodilator protocol. 5:31 AM 06/11/2025 (Doni GIFFORD): The patient's CTA shows no evidence of PE, there is emphysematous changes with scattered mucus plugging of the right lower lobe, no focal consolidation. The patient's cough and work of breathing did not improve despite use of bronchodilator protocol and Solu-Medrol. Patient was occasionally noted to be desaturating as low as 89%. A viral swab was added on and has just tested positive for COVID. Due to the patient's malaise, fatigue, and COVID with underlying COPD with hypoxia at rest, patient will be admitted. Admission/Observation Consideration of admission/observation: Escalation of care including admission/observation considered Lab Data MDM Lab Attestation statement: I reviewed the patient's lab results. 06/10/25 21:59 06/10/25 21:59 Labs: Lab Results 06/10/25 06/11/25 06/11/25 Range/Units 21:59 00:25 04:46 WBC 15.8 H (4.8-10.8) X10*3/uL RBC 4.59 L (4.60-5.80) X10*6/uL Hgb 14.2 (14.0-18.0) g/dl Hct 42.6 (42.0-52.0) % MCV 92.8 (80.0-98.0) fL MCH 30.9 (27.0-33.0) pg MCHC 33.3 (31.0-36.0) g/dl RDW 13.2 (11.0-16.0) % Plt Count 206 (160-400) X10*3/uL MPV 9.0 L (9.4-12.4) fL Immature Gran % (Auto) 0.5 H (0.0-0.4) % Neut % (Auto) 80.4 H (45-73) % Lymph % (Auto) 12.6 L (20-40) % [place] % (Auto) 5.8 (2-11) % Eos % (Auto) 0.4 (0-4) % Baso % (Auto) 0.3 (0-2) % Lymph # (Auto) 2.0 (1.2-4.9) X10*3/uL [place] # (Auto) 0.9 (0.1-1.2) X10*3/uL Eos # (Auto) 0.1 (0.0-0.4) X10*3/uL Baso # (Auto) 0.0 (0.0-0.2) X10*3/uL Abs Immat Gran (auto) 0.08 H (0.00-0.03) X10*3/uL Absolute Neuts (auto) 12.7 H (2.0-8.3) x10*3/uL Absolute Nucleated RBC 0.000 (0.0-0.012) X10*3/uL Nucleated RBC % (auto) 0.0 (0.0-0.2) /100WBC Sodium 142 (135-145) mmol/L Potassium 4.4 (3.3-5.1) mmol/L Chloride 106 (96-108) mmol/L Carbon Dioxide 24 (22-29) mmol/L Anion Gap 16 (12-20) BUN 12 (9-16) mg/dL Creatinine 0.68 (0.5-1.4) mg/dL Estim Creat Clear Calc 93.1 Estimated GFR > 60 Random Glucose 102 (60-115) mg/dL Calcium 9.5 D (8.4-10.2) mg/dL Total Bilirubin 0.5 (0.0-1.0) mg/dL AST 34 (5-37) U/L ALT 19 (0-40) U/L Alkaline Phosphatase 92 (39-117) U/L Total Protein 7.2 (6.5-8.0) g/dL Albumin 5.0 (3.5-5.0) g/dL Urine Color Yellow Urine Appearance Cloudy Urine pH 5.5 (5.0-9.0) Ur Specific [place] 1.020 (1.005-1.025) Urine Protein 30 (1+) H (Neg-Trace) mg/dL Urine Glucose (UA) Negative (Negative) mg/dL Urine Ketones 15 (Negative) mg/dL Urine Blood Negative (Negative) Urine Nitrite Negative (Negative) Ur Leukocyte Esterase Negative (Negative) Urine RBC 0-2 (0-2) /HPF Urine WBC 6-10 H (0-5) /HPF Ur Squamous Epith Cells 6-10 (0-2) /HPF Urine Bacteria None Seen (None Seen) Hyaline Casts 3-5 (0-2) /LPF Urine Opiates Screen POSITIVE H (Not Detect) Ur Buprenorphine Scrn Not Detected (Not Detect) ng/mL Ur Oxycodone Screen Not Detected (Not Detect) ng/mL Urine Methadone Screen Not Detected (Not Detect) ng/mL Urine Fentanyl Screen POSITIVE H (Not Detect) Ur Barbiturates Screen Not Detected (Not Detect) Ur Phencyclidine Scrn Not Detected (Not Detect) Ur Amphetamines Screen Not Detected (Not Detect) U Benzodiazepines Scrn Not Detected (Not Detect) Urine Cocaine Screen POSITIVE H (Not Detect) U Marijuana (THC) Screen Not Detected (Not Detect) Influenza Type A (PCR) NEGATIVE (Negative) Influenza Type B (PCR) NEGATIVE (Negative) RSV RNA Qual (PCR) NEGATIVE (Negative) SARS-CoV-2 RNA (RT-PCR) POSITIVE A (Negative) Radiology Impression Discussion of test interpretation with radiology: I have reviewed the radiologist's reading. Radiologist Impression: CT angiography chest using contrast. 3-D postprocessing Comparison: CR - XR CHEST 2V - 06/11/25 00:06 EST Findings: No pulmonary embolism. No thoracic aorta aneurysm. Heart size within normal limits. RV/LV ratio normal. Coronary artery calcifications are present. No focal pulmonary consolidation, pneumothorax, or pleural effusion. 6 mm right upper lobe pulmonary nodule present on axial image number 50 of series 10. 6 mm left upper lobe pulmonary nodule on image number 25 of series 10. Centrilobular emphysema identified throughout the bilateral lungs. Scattered mucous plugging identified at the right lower lobe. Indeterminate 1.3 cm left adrenal nodule. No acute fractures. Impression: Negative for pulmonary embolism. Emphysema present with scattered mucous plugging at the right lower lobe. No focal pulmonary consolidation. 6 mm nodules present at the bilateral upper lobes. Recommend 3-[address] follow-up followed by an optional 18-[address] follow-up regardless of patient risk according to Fleischner criteria. This document has been electronically signed by: Ulysses Ramirez MD on 06/11/2025 02:41:44 Medications Administered Discontinued Medications Generic Name Dose Route Start Last Admin Trade Name Freq PRN Reason Stop Dose Admin Albuterol Sulfate 2.5 mg/ 5 mg 06/11/25 01:10 06/11/25 04:11 Albuterol Sulfate 2.5 mg INHALE 06/11/25 01:11 5 mg ONCE ONE Administration Albuterol Sulfate 2.5 mg/ 0 mg 06/11/25 01:10 06/11/25 01:16 Albuterol/Ipratropium 3 ml INHALE 06/11/25 01:11 1 dose ONCE ONE Administration Sodium Chloride 1,000 mls @ 999 mls/hr 06/11/25 01:00 06/11/25 03:00 Ns IV 06/11/25 02:00 Infused .Q1H1M UNIQUE Infusion Methylprednisolone Sodium Succinate 125 mg 06/11/25 00:55 06/11/25 01:25 Methylprednisolone Sod Succ 125 Mg/2 Ml Vial IVPUSH 06/11/25 00:56 125 mg ONCE ONE Administration Discharge Plan Discharge Clinical Impression: COVID-19, COPD exacerbation, Hypoxemia, Cocaine abuse Patient Disposition: Admitted As Inpatient Print Language: Mauritanian
[2025-06-11 00:44] LABS: Appearance Urine Cloudy; Glucose Urine UA Negative (Negative); PH 5.5 (5.0-9.0); Specific Gravity - Urine 1.020 (1.005-1.025); UMIC TRIGGER UACC YES
[2025-06-11 00:47] LABS: UACC Culture Trigger YES
[2025-06-11 00:49] LABS: Cannabinoid Screen Urine Not Detected (Not Detect)
--- NOTE | 2025-06-11 01:05 | ECG_ITS ---
Test Reason : SOB Blood Pressure : */* mmHG Vent. Rate : 91 BPM Atrial Rate : 91 BPM P-R Int : 136 ms QRS Dur : 78 ms QT Int : 382 ms P-R-T Axes : 63 -25 62 degrees QTcB Int : 469 ms Normal sinus rhythm Normal ECG When compared with ECG of 10-Aug-2023 15:12, No significant change was found Referred By: Will Fischer Electronically Signed By: Gautam Portillo
[2025-06-11] MEDS: Albuterol Sulfate 2.5 MG, Albuterol/Iprat 2.5/0.5MG 3 ML 3 ML INHALE (01:16)
[2025-06-11 01:20] VITALS: PULSE 86; RESP 18; O2SAT 97
[2025-06-11 01:30] VITALS: BP 143/80; PULSE 80; RESP 22; O2SAT 100
[2025-06-11 03:52] VITALS: BP 137/63; PULSE 87; RESP 22; O2SAT 92
[2025-06-11] MEDS: Albuterol Sulfate 2.5 MG, Albuterol Sulfate (0.083%) 2.5 MG 5 MG INHALE (04:11)
[2025-06-11 04:30] VITALS: O2SAT 89
[2025-06-11 05:27] LABS: Resp Syncy Virus RNA Qual PCR NEGATIVE (Negative); SARS COV2 PCR INHOUSE POSITIVE (Negative)
--- NOTE | 2025-06-11 05:50 | PC.NURSE ---
Pt moved from ED16H to ED16. Pt A&ox4, denies pain. Pt does report feeling slightly short of breath still. spO2 on was 89% on room air. Pt is currently on 2L maintaining spO2 above 95%. Pt does have a junky cough. Breathing unlabored. Skin pwd. NSR on tele. Call arizmendi within reach. Plan of care ongoing.
[2025-06-11 06:40] VITALS: BP 125/56; PULSE 85; RESP 20; TEMP 36.6; O2SAT 99
--- NOTE | 2025-06-11 07:58 | P.HPHOSP_ITS ---
History of Present Illness Date of Service: 06/11/25 Chief Complaint: sob 70M PMH cocaine abuse, COPD presented with shortness of breath. Patient states he has had cold symptoms for about a week, about 1 day prior to presentation had worsening symptoms with dry cough, shortness of breath, fatigue. Denies fevers, sick contacts. In ED was transiently hypoxic to 89% on room air, COVID positive, CTA chest with no PE but emphysema with scattered mucus plugging. Review of Systems 2 Review of Systems: Yes all other systems are reviewed and are negative [facility] Medical History Colon cancer COPD (chronic obstructive pulmonary disease) BPH (benign prostatic hyperplasia) Social History Household Members: None Housing: Other Housing Other:: Renting a room Do you presently have visiting nurse or other home services: No Alcohol intake: never Patient Tobacco Use Status: Former Tobacco user Smoked in Last 30 Days: No Substance Use Type: Crack/Cocaine Substance Use Frequency: Occasionally Advance Directives: No Advance Directives Information Provided: No Meds Allergies Allergy/AdvReac Type Severity Reaction Status Date / Time haloperidol (Haldol) Allergy Unknown Anaphylaxis Verified 06/10/25 20:43 Wellbutrin Allergy Unknown Hives Uncoded 06/03/25 10:45 Active Medications: Current Medications Acetaminophen (Acetaminophen 325 Mg Tablet) 650 mg PO Q6H PRN PRN Reason: Pain, Mild 1-3,fever,headache Albuterol/Ipratropium (Albuterol/Iprat 2.5/0.5mg 3 Ml Ampul.Neb) 3 ml INHALE RQ4H WHILE AWAKE PRN PRN Reason: sob Calcium Carbonate (Calcium Carbonate 750 Mg Tab.Chew) 750 mg PO Q4H PRN PRN Reason: Heartburn Enoxaparin Sodium (Enoxaparin Sodium 40 Mg/0.4 Ml Syringe) 40 mg SUBCUT Q24H UNIQUE Magnesium Hydroxide (Milk Of Magnesia 30 Ml Oral.Susp) 30 ml PO DAILY PRN PRN Reason: Constipation Melatonin (Melatonin 3 Mg Tablet) 6 mg PO BEDTIME PRN PRN Reason: Insomnia Methylprednisolone Sodium Succinate (Methylprednisolone Sod Succ 40 Mg/Ml Vial) 40 mg IVPUSH Q12H UNIQUE Sodium Chloride (0.9 % Sodium Chloride Flush 3 Ml Syringe) 3 ml IVFLUSH QSHIFT [facility] Home Medications ?Medication ?Instructions ?Recorded ?Confirmed ?Last Taken ?Type ferrous gluconate 324 mg (38 mg 324 mg PO DAILY 08/10/23 Unknown History iron) tablet levalbuterol tartrate 45 2 inh inhalation QID PRN Jeana rtness 08/10/23 08/10/23 Unknown History mcg/actuation aerosol inhaler Of Breath Or Wheezing omeprazole 20 mg capsule,delayed 20 mg PO DAILY Unknown History release oxcarbazepine 600 mg tablet 600 mg PO BID 02/10/25 Un known History fluticasone fur. 200 mcg-umeclid 1 inh inhalation NICOLE Y 05/06/25 Unknown History 62.5 mcg-vilant 25 mcg inhalat.powder (Trelegy Ellipta) zolpidem 5 mg tablet 5 mg PO BEDTIME 05/06/25 Un known History prazosin 2 mg capsule 2 mg PO BEDTIME 06/03/25 Un known History Physical Exam 2 Vital Signs and Narrative: Vital Signs: Last Vital Signs Temp 98 F 06/11/25 06:40 Pulse 85 06/11/25 06:40 Resp 20 06/11/25 06:40 BP 125/56 L 06/11/25 06:40 Pulse Ox 99 06/11/25 06:40 O2 Del Method Nasal Cannula 06/11/25 06:40 O2 Flow Rate 2 06/11/25 06:40 BMI result Body Mass Index 26.0 General: AO X 3, no acute distress Resp: rhonchi bilateral, no accessory muscles used CVS: S1,S2,RRR GI: soft, non tender, non distended Neuro: motor grossly intact, alert Psych: appropriate affect, appropriate insight Results Labs 06/10/25 21:59 06/10/25 21:59 Labs: Laboratory Results - last 24 hr 06/10/25 06/11/25 06/11/25 21:59 00:25 04:46 MCV 92.8 MCH 30.9 MCHC 33.3 RDW 13.2 Plt Count 206 MPV 9.0 L Immature Gran % (Auto) 0.5 H Neut % (Auto) 80.4 H Lymph % (Auto) 12.6 L [place] % (Auto) 5.8 Eos % (Auto) 0.4 Baso % (Auto) 0.3 Lymph # (Auto) 2.0 [place] # (Auto) 0.9 Eos # (Auto) 0.1 Baso # (Auto) 0.0 Abs Immat Gran (auto) 0.08 H Absolute Neuts (auto) 12.7 H Absolute Nucleated RBC 0.000 Nucleated RBC % (auto) 0.0 Anion Gap 16 Estim Creat Clear Calc 93.1 Estimated GFR > 60 Random Glucose 102 Calcium 9.5 D Total Bilirubin 0.5 AST 34 ALT 19 Alkaline Phosphatase 92 Total Protein 7.2 Albumin 5.0 Urine Color Yellow Urine Appearance Cloudy Urine pH 5.5 Ur Specific [place] 1.020 Urine Protein 30 (1+) H Urine Glucose (UA) Negative Urine Ketones 15 Urine Blood Negative Urine Nitrite Negative Ur Leukocyte Esterase Negative Urine RBC 0-2 Urine WBC 6-10 H Ur Squamous Epith Cells 6-10 Urine Bacteria None Seen Hyaline Casts 3-5 Urine Opiates Screen POSITIVE H Ur Buprenorphine Scrn Not Detected Ur Oxycodone Screen Not Detected Urine Methadone Screen Not Detected Urine Fentanyl Screen POSITIVE H Ur Barbiturates Screen Not Detected Ur Phencyclidine Scrn Not Detected Ur Amphetamines Screen Not Detected U Benzodiazepines Scrn Not Detected Urine Cocaine Screen POSITIVE H U Marijuana (THC) Screen Not Detected Influenza Type A (PCR) NEGATIVE Influenza Type B (PCR) NEGATIVE RSV RNA Qual (PCR) NEGATIVE SARS-CoV-2 RNA (RT-PCR) POSITIVE A Assessment and Plan (1) Cocaine abuse: Status: Acute Plan 70M PMH cocaine abuse, COPD presented with shortness of breath Transient acute hypoxia due to COPD with acute decompensation due to COVID and cocaine abuse IV Solu-Medrol, DuoNebs, azithromycin, counseling given regarding cocaine use DVT prophylaxis with Lovenox Full code Quality Stroke Does the patient have a stroke diagnosis?: No VTE Prior VTE?: No VTE Risk Level:: Medical - moderate - high VTE Device Contraindication: Treatment Not Indicated VTE Drug Contraindication: N/A - Med Ordered
[2025-06-11 08:08] VITALS: BP 121/52; PULSE 80; RESP 18; TEMP 36.9; O2SAT 95
--- NOTE | 2025-06-11 08:13 | PC.NURSE ---
Pt has been sleeping soundly till this RN arrival to room. Trial w/o O2 is going well. No SOB. VSS. LS coarse wheezes throughout with good air movement. Intermittent junky cough noted. Pt denies pain. Taking PO well. NAD w/o exertion.
--- OUTSIDE RECORDS SUMMARY | 2025-06-11 08:40 | XMS_ITS | Clinical Summary ---
Author Organization [facility] Address [address] [place] [address] Care Team Providers Care Supplier Diversity Director Name Role Phone Fortunato Zafar [facility] [...] 02/20/2023 Insurance [employer] Care Teams Supplier Diversity Director Relationship Specialty Start Date End Date Fortunato Zafar [address] [place] [id number] PCP - General Material Attendant 01/06/25
--- NOTE | 2025-06-11 09:22 | PM.DS ---
DS: Providers Provider Date of admission: 06/11/25 06:10 Date of discharge: 06/11/25 Primary care physician: Unknown Physician DS: Diagnosis Discharge Diagnosis (1) Cocaine abuse: Status: Acute DS: Summary Hospital Course Hospital Course: from initial hpi: 70M PMH cocaine abuse, COPD presented with shortness of breath. Patient states he has had cold symptoms for about a week, about 1 day prior to presentation had worsening symptoms with dry cough, shortness of breath, fatigue. Denies fevers, sick contacts. In ED was transiently hypoxic to 89% on room air, COVID positive, CTA chest with no PE but emphysema with scattered mucus plugging. hospital course: Patient was admitted for transient acute hypoxia due to COPD with acute decompensation due to COVID and cocaine abuse. He was given Solu-Medrol and DuoNebs and azithromycin and counseling regarding his cocaine base. His symptoms quickly improved he is now saturating well on room air with minimal shortness of breath and requesting to complete rest of treatment at home. Patient will be discharged home on 5 day course of Ceftin and instructed to continue his prednisone that was given on previous presentation. Time Attestation Discharge Coordination Time (in mins): 32 Quality: Safe Use of Opioids Does Pt have an Active Cancer Diagnosis on the Problem List?: No Quality: Stroke Does the patient have a stroke diagnosis?: No Physical Exam Exam: Exam: General: AO X 3, no acute distress Resp: rhonchi bilateral, no accessory muscles used CVS: S1,S2,RRR GI: soft, non tender, non distended Neuro: motor grossly intact, alert Psych: appropriate affect, appropriate insight Vital Signs: Vital Signs: Last Vital Signs Temp 98.4 F 06/11/25 08:08 Pulse 80 06/11/25 08:08 Resp 18 06/11/25 08:08 BP 121/52 L 06/11/25 08:08 Pulse Ox 95 06/11/25 08:08 O2 Del Method Room Air 06/11/25 08:08 O2 Flow Rate 2 06/11/25 06:40 BMI result Body Mass Index 26.0 DS: Data Data Completed and Pending Labs on day of discharge: Laboratory Results - last 24 hr 06/10/25 06/11/25 06/11/25 21:59 00:25 04:46 WBC 15.8 H RBC 4.59 L Hgb 14.2 Hct 42.6 MCV 92.8 MCH 30.9 MCHC 33.3 RDW 13.2 Plt Count 206 MPV 9.0 L Immature Gran % (Auto) 0.5 H Neut % (Auto) 80.4 H Lymph % (Auto) 12.6 L [place] % (Auto) 5.8 Eos % (Auto) 0.4 Baso % (Auto) 0.3 Lymph # (Auto) 2.0 [place] # (Auto) 0.9 Eos # (Auto) 0.1 Baso # (Auto) 0.0 Abs Immat Gran (auto) 0.08 H Absolute Neuts (auto) 12.7 H Absolute Nucleated RBC 0.000 Nucleated RBC % (auto) 0.0 Sodium 142 Potassium 4.4 Chloride 106 Carbon Dioxide 24 Anion Gap 16 BUN 12 Creatinine 0.68 Estim Creat Clear Calc 93.1 Estimated GFR > 60 Random Glucose 102 Calcium 9.5 D Total Bilirubin 0.5 AST 34 ALT 19 Alkaline Phosphatase 92 Total Protein 7.2 Albumin 5.0 Urine Color Yellow Urine Appearance Cloudy Urine pH 5.5 Ur Specific [place] 1.020 Urine Protein 30 (1+) H Urine Glucose (UA) Negative Urine Ketones 15 Urine Blood Negative Urine Nitrite Negative Ur Leukocyte Esterase Negative Urine RBC 0-2 Urine WBC 6-10 H Ur Squamous Epith Cells 6-10 Urine Bacteria None Seen Hyaline Casts 3-5 Urine Opiates Screen POSITIVE H Ur Buprenorphine Scrn Not Detected Ur Oxycodone Screen Not Detected Urine Methadone Screen Not Detected Urine Fentanyl Screen POSITIVE H Ur Barbiturates Screen Not Detected Ur Phencyclidine Scrn Not Detected Ur Amphetamines Screen Not Detected U Benzodiazepines Scrn Not Detected Urine Cocaine Screen POSITIVE H U Marijuana (THC) Screen Not Detected Influenza Type A (PCR) NEGATIVE Influenza Type B (PCR) NEGATIVE RSV RNA Qual (PCR) NEGATIVE SARS-CoV-2 RNA (RT-PCR) POSITIVE A Discharge Plan Discharge Anticipated Discharge Date/Time: 06/11/25 09:21 Patient Disposition: Home, Self-Care Discharge Diagnosis: COVID, COPD Referrals: Physician,Unknown J [Primary Care Provider, Medical] - 1 Week Discharge Medications: New cefuroxime axetil 500 mg tablet 500 mg PO BID Qty: 10 0RF Continued oxcarbazepine 600 mg tablet 600 mg PO BID roflumilast [Daliresp] 250 mcg tablet 250 mcg PO DAILY 28 Days Qty: 28 0RF levalbuterol tartrate 45 mcg/actuation Hfa Aerosol Inhaler 2 inh INHALATION QID PRN (Reason: Shortness Of Breath Or Wheezing) ferrous gluconate 324 mg (38 mg iron) Tablet 324 mg PO DAILY prazosin 2 mg capsule 2 mg PO BEDTIME omeprazole 20 mg capsule,delayed release(DR/EC) 20 mg PO DAILY Combivent Respimat 20-100 mcg/actuation mist 1 puff inhalation Q6H Qty: 4 4RF prednisone 20 mg tablet 40 mg PO DAILY Qty: 10 0RF zolpidem 5 mg tablet 5 mg PO BEDTIME Trelegy Ellipta 200-62.5-25 mcg blister with device 1 inh inhalation DAILY Discontinued azithromycin 250 mg tablet See Rx Instructions PO .COMPLEX Qty: 6 0RF Rx Instructions: For 250 mg dose pack: take 500 mg today (day 1), then 250 mg for 4 days (days 2-5) PO Discharge Orders: Discharge Order (Routine); Ordered 06/11/25 Ordered By: Arcadio Pendleton Diet: Advance to usual diet Activity on Discharge: As tolerated Stand Alone Forms: Patient Portal Discharge page Print Language: Nicarag[place] Care Plan Goals: Recovery Health Concerns: COVID, COPD, cocaine abuse Plan of Treatment: Avoid cocaine, complete Ceftin and prednisone course Assessment: See above
--- NOTE | 2025-06-11 09:23 | PC.NURSE ---
Pt is dressed and insists on leaving> Doc Jesin to bedside and patient willing to wait for d/c papers.
--- NOTE | 2025-06-11 09:32 | PHA.MEDREC ---
Pharmacy Consult ? Medication Reconciliation Pharmacy has completed the medication reconciliation. Confirmed medication list with patient. Patient takes Predisone 20 mg tablet and Zolpidem 5 mg tablets PRN at home. Patient claims he last took prednisone at home last week but does not remember the day. patient claims he last took Zolpidem at home on . Patient took all non-PRN morning medications and used all inhalers yesterday. Patient last took Prazosin night.
--- NOTE | 2025-06-11 09:46 | MHC.CM.PN ---
Patient dc'd home self care via private transport prior to CM assessment
== END 2025-06-11 09:39 | disposition home or self-care (01) ==
LOC: HO.ED 06-11 05:47 → HO.EDOVER 06-11 06:22
PROVIDERS: Physician Assistant; Admitting Provider Family Medicine; Emergency Provider Emergency Medicine; Visit Provider Internal Medicine
DX: U07.1 COVID-19 (principal); J44.9 Chronic obstructive pulmonary disease, unspecified; F14.10 Cocaine abuse, uncomplicated; R42 Dizziness and giddiness; R05.9 Cough, unspecified; R82.90 Unspecified abnormal findings in urine; D72.829 Elevated white blood cell count, unspecified; R06.02 Shortness of breath; J43.9 Emphysema, unspecified; Z87.891 Personal history of nicotine dependence; Z79.899 Other long term (current) drug therapy; Z79.51 Long term (current) use of inhaled steroids
CPT/HCPCS: 36415; 71046; 71275; 80053; 80307; 81001; 85025; 87086; 87637; 93005; 94640; 96361; 96374; 96376; 99222; 99285; J2919

== ENCOUNTER → 2025-06-11 01:05 | Outpatient (BNV) | payer OTHER, SELFPAY | PROVIDERS: Admitting Provider Family Medicine; Emergency Provider Emergency Medicine; Visit Provider Internal Medicine Cardiovascular Disease | DX: R06.02 Shortness of breath (principal) | CPT/HCPCS: 93010 ==

== ENCOUNTER → 2025-06-11 06:10 | Outpatient (BNV) | payer OTHER, SELFPAY | PROVIDERS: Admitting Provider Family Medicine; Emergency Provider Emergency Medicine; Visit Provider Internal Medicine | DX: J96.01 Acute respiratory failure with hypoxia (principal); J12.82 Pneumonia due to coronavirus disease 2019; F14.10 Cocaine abuse, uncomplicated | CPT/HCPCS: 99221; 99499 ==

== ENCOUNTER → 2025-06-11 | Outpatient (BNV) | payer OTHER, SELFPAY | PROVIDERS: Emergency Provider Emergency Medicine; Visit Provider Radiology Diagnostic Radiology | DX: J43.9 Emphysema, unspecified (principal); R91.8 Other nonspecific abnormal finding of lung field; D72.829 Elevated white blood cell count, unspecified; R05.9 Cough, unspecified | CPT/HCPCS: 71046; 71275 ==